=== PATIENT | male | born 1955 | race Caucasian/White ===

== ENCOUNTER → 2016-09-24 | Outpatient (CLI) | payer BC ==
--- NOTE | 2016-09-24 12:37 | KCIC ---
PROCEDURE MRI of the cervical spine without contrast 09/24/2016 HISTORY Chronic neck pain which radiates down both shoulders. TECHNIQUE Unenhanced T1 weighted, T2 weighted and inversion recovery sagittal and gradient echo and T2 weighted axial images of the cervical spine were obtained. FINDINGS Very mild lateral curvature of the cervical spine is seen convex to the right. There is straightening of the normal cervical lordosis. Degenerative signal changes are seen involving all of the discs of the cervical spine. Degenerative signal changes are seen within the marrow surrounding these discs. Loss of height of the C5-6 disc is noted. No area of abnormal signal intensity is seen involving the cervical spinal cord. At the C2-3, C3-4 and C4-5 disc spaces there are minimal to mild generalized disc bulges. Degenerative changes are seen involving the uncovertebral and facet joints bilaterally. These findings when combined do not result in significant central spinal canal or neural foraminal stenosis. At the C5-6 disc space there is moderate generalized disc bulge. Superimposed on this disc bulge is a focal central disc protrusion. This measures 3 millimeters in AP diameter. Degenerative changes are seen involving uncovertebral and facet joints bilaterally. These findings efface the anterior and posterior CSF resulting in mild central spinal canal stenosis with minimal cord impingement. Mild to moderate bilateral neural foraminal stenosis is seen. At the C6-7 disc space there is a mild to moderate generalized disc bulge. Superimposed on this disc bulge is a central/left paracentral focal disc protrusion. This measures 2-3 millimeters in AP diameter. Degenerative changes are seen involving the uncovertebral and facet joints, left greater than right. These findings when combined efface the anterior CSF resulting in mild central spinal canal stenosis without evidence of cord impingement. Mild to moderate left greater than right neural foraminal stenosis is seen. At the C7-T1 disc space there is a minimal generalized disc bulge. No significant central spinal canal or neural foraminal stenosis is seen. IMPRESSION Degenerative changes are seen throughout the cervical spine. These findings result in mild central spinal canal stenosis with minimal cord impingement at C5-6 and mild central spinal canal stenosis at C6-7. Mild to moderate bilateral neural foraminal stenosis is seen at C5-6. Mild to moderate left greater than right neural foraminal stenosis is seen at C6-7. Electronically signed by: Rk Gallegos MD (Sep 24, 2016 12:36:15)
== END | disposition home or self-care (01) ==
LOC: KCIC MRI 08:59
PROVIDERS: ATTEND Anesthesiology Pain Medicine
DX: M48.02 Spinal stenosis, cervical region (principal); M47.892 Other spondylosis, cervical region; M43.8X2 Other specified deforming dorsopathies, cervical region
CPT/HCPCS: 72141

== ENCOUNTER 2017-01-17 17:28 | Inpatient (IN) | payer BC ==
[~2017-01-17] VITALS: Ht 165.1 cm; Wt 96.2 kg
[2017-01-17] MEDS ORDERED: DEXTROSE 50% 25 GM / 50ML DISP.SYRIN. IV PRN (19:30)
[2017-01-17] MEDS ORDERED: PROCHLORPERAZINE 10 MG/2 ML VIAL. IV PRN (19:30)
[2017-01-17] MEDS ORDERED: BISACODYL 10 MG SUPP.RECT. PR PRN (19:30)
[2017-01-17] MEDS ORDERED: oxyCODONE/APAP 5/325 1 TAB TABLET PO PRN (19:30)
[2017-01-17] MEDS ORDERED: MAGNESIUM HYDROXIDE 2,400 MG/30 ML ORAL.SUSP. PO PRN (19:30)
[2017-01-17] MEDS ORDERED: LACTULOSE 20 GM/30 ML SOLUTION. PO PRN (19:30)
[2017-01-17] MEDS ORDERED: ACETAMINOPHEN 325 MG TABLET. PO PRN (19:30)
[2017-01-17] MEDS ORDERED: PROCHLORPERAZINE 25 MG SUPP.RECT. PR PRN (19:30)
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
[2017-01-17] MEDS: IV 1/2 NORMAL SALINE 1,000 ML IV SCH (20:23)
[2017-01-17] MEDS: MORPHINE SULFATE 2 MG/ML DISP.SYRIN. IV PRN ×2 (20:25→22:57)
[2017-01-17 20:43] VITALS: BP 108/69
[2017-01-17 20:44] VITALS: BP 108/69
[2017-01-17] MEDS: DOCUSATE SODIUM 100 MG CAPSULE. PO SCH (22:03)
[2017-01-17 23:00] VITALS: BP 114/69
[2017-01-18] MEDS: MORPHINE SULFATE 2 MG/ML DISP.SYRIN. IV PRN ×5 (02:06→21:04)
--- NOTE | 2017-01-18 02:28 | ACF ---
Admission Forms Criteria MUSCULOSKELETAL DISEASE GRG Clinical Indications for Admission to Inpatient Care (Place 'X' for any and all applicable criteria): Hospital admission is needed for appropriate care of the patient because of 1 or more of the following: [X ]I. Fracture, dislocation, or other musculoskeletal injury requiring inpatient care(medical) as indicated by 1 or more of the following(4)(5)(6)(7) [ ]a) Vertebral fracture requiring observation for instability or neurologic compromise (8) [ ]b) Compartment syndrome (proven or cannot be ruled out during observation level of care) (9) [ ]c) Limb-threatening injury [ ]d) Major injury requiring inpatient stabilization such as traction initiation or external fixation before internal fixation or closure of complex or open fracture [X ]e) Major injury requiring inpatient treatment after emergency or observation level care (as appropriate) [ ]f) Severe pain requiring acute inpatient management [ ]g) Injury with suspicion of abuse or neglect (eg., child, dependent elderly) [ ]II. Newly diagnosed or suspected bone, joint, or orthopedic device infection (e.g., osteomyelitis, septic arthritis) needing 1 or more of the following(1)(2)(3) [ ]a) IV antibiotics that cannot be initiated in other than inpatient setting (e.g., patient too unstable or home infusion not available) [ ]b) Device removal or replacement [ ]c) Bone or soft tissue debridement [ ]d) Joint drainage (drain placement or repetitive aspirations) [ ]III. Severe rheumatologic disease (e.g., systemic lupus erythematosus, rheumatoid arthritis) with complications or comorbidities (Also use Optimal Recovery Care Criteria or General Recovery Criteria as appropriate on the basis of predominant condition), including 1 or more of the following( 10)(11)(12)(13) [ ]a) Severe infection (e.g., [employer]EL [employer] infection, sepsis) (14) [ ]b) Respiratory complications, including 1 or more of the following : [ ]i) Pleural effusion with respiratory compromise [ ]ii) Pulmonary hypertension with congestive failure [ ]iii) Respiratory failure [ ]iv) Pulmonary hemorrhage (15) [ ]c) Hematologic disease, including 1 or more of the following: [ ]i) Coagulopathy with bleeding [ ]ii) Thrombosis with hypercoagulable state [ ]iii) Thrombotic thrombocytopenic purpura [ ]d) Cerebritis with seizures, psychosis, or other severe abnormalities [ ]e) Vertebral destruction with monitoring needed for cervical myelopathy& possible respiratory compromise [ ]f) Exacerbation that requires inpatient treatment (e.g., intravenous immunosuppression) (16) [ ]g) Acute renal failure [ ]h) Cerebritis with seizures, psychosis, Altered mental status, or other neurologic abnormalities [ ]i) Pericardial effusion with tamponade [ ]j) Vertebral destruction, with monitoring needed for cervical myelopathy and possible respiratory compromise [ ]IV. Severe vasculitis with complications or comorbidities (Also use Optimal Recovery Care Criteria General Recovery Criteria as appropriate on the basis of predominant condition), including 1 or more of the following(11)(12)(17)(18)(19)(20) [ ]a) Exacerbation that requires inpatient treatment (e.g., intravenous immunosuppression) (19)(21) [ ]b) Pulmonary hemorrhage (15) [ ]c) SLEEV[employer] vasculitis with seizures, psychosis, Altered mental status that is severe or persistent, or other severe abnormalities (22) [ ]d) Cerebral infarction [ ]e) Gastrointestinal ischemia [ ]f) Gangrene or threatened amputation [ ]g) Renal failure (16) [ ]h) Other significant complications of vasculitis ( eg., tissue or organ ischemia, organ dysfunction ) [ ]V. Severe myopathy as indicated by 1 or more of the following (28)(29) [ ]a) New onset of airway compromise or inability to swallow [ ]b) Respiratory deterioration with observation needed for impending respiratory failure [ ]c) Exacerbation that requires inpatient treatment (e.g., intravenous immunosuppression) [ ]. Severe crystal gout (arthropathy) indicated by 1 or more of the following (23)(24) [ ]a) Severe pain requiring acute inpatient management [ ]b) Exacerbation that requires inpatient treatment (e.g., intravenous treatment) [ ]VII.Rhabdomyolysis and 1 or more of the following (25)(26)(27) [ ]a) Acute renal failure [ ]b) Need for intravenous hydration after emergency or observation level care (as appropriate) [ ]c) Inability to maintain oral hydration [ ]d) Change in mental status [ ]e) Electrolyte abnormality that remains after emergency or observation level care (as appropriate) [ ]VIII Post amputation complication, as indicated by ANY ONE of the following [ ]a) Infection [ ]b) Dehiscence [ ]c) Myodesis failure [ ]IX. Severe pain requiring acute inpatient management due to musculoskeletal condition [ ]X. Musculoskeletal Disease and ALL of the following: [ ]a) Symptom or finding for which emergency and observation care have failed or are not considered appropriate (Use General Criteria: Observation Care as appropriate) [ ]b) Presence of ANY ONE of the following [ ]i) A General Admission Criteria [ ]ii) A Pediatric General Admission Criteria The original [facility] [employer] content created by [facility] [employer] has been revised. The portions of the content which have been revised are identified through the use of italic text or in bold, and [facility] has neither reviewed nor approved the modified material. All other unmodified content is copyright [facility]. Please see references footnoted in the original [facility] edition 2016 Admission Criteria Met?: Yes LAST HE Jan 18, 2017 02:28
[2017-01-18 03:00] VITALS: BP 137/75
[2017-01-18] MEDS ORDERED: ALPR0.5T PO ×2 (03:42)
[2017-01-18] MEDS ORDERED: TADA5TAB PO (03:42)
[2017-01-18] MEDS ORDERED: OLME1TAB35 PO (03:42)
[2017-01-18] MEDS ORDERED: LIRA0.6P2 SQ (03:42)
[2017-01-18] MEDS ORDERED: TEST200V3 IM (03:42)
[2017-01-18 04:29] LABS: CALCIUM 8.3 mg/dL (8.5-10.1); CREATININE 1.1 mg/dL (0.7-1.3); GFR 67.8; POTASSIUM 3.8 mmol/L (3.5-5.1)
[2017-01-18] MEDS: oxyCODONE/APAP 10/325 1 TAB TABLET PO PRN ×4 (04:46→22:19)
[2017-01-18] MEDS: IV 1/2 NORMAL SALINE 1,000 ML IV SCH (05:29)
[2017-01-18 07:00] VITALS: BP 128/79
[2017-01-18] MEDS: KETOROLAC TROMETHAMINE 30 MG/ML INJ. IV PRN (08:33)
[2017-01-18] MEDS: ONDANSETRON PF 4 MG/2 ML VIAL. IV PRN ×2 (08:33→22:19)
[2017-01-18] MEDS: INSULIN ASPART 300 UNITS/3 ML INSULN.PEN SQ SCH ×3 (08:45→17:00)
[2017-01-18] MEDS: DOCUSATE SODIUM 100 MG CAPSULE. PO SCH ×2 (08:53→21:04)
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
[2017-01-18 11:00] VITALS: BP 106/67
[2017-01-18 15:00] VITALS: BP 123/64
[2017-01-18 19:00] VITALS: BP 120/74
[2017-01-18] MEDS: fentaNYL PF VIAL 100 MCG/2 ML VIAL IV PRN (22:20)
[2017-01-18 23:00] VITALS: BP 124/80
[2017-01-19 03:00] VITALS: BP 145/82
[2017-01-19] MEDS: oxyCODONE/APAP 10/325 1 TAB TABLET PO PRN ×4 (03:01→09:20)
[2017-01-19] MEDS: fentaNYL PF VIAL 100 MCG/2 ML VIAL IV PRN (03:44)
[2017-01-19 05:03] LABS: BASO % 0 % (0-3); EOS % 0 % (0-3); HEMATOCRIT 46.6 % (39.0-53.0); HEMOGLOBIN 15.1 g/dL (13.0-17.5); LYMPH # 1.2 x10^3/uL (1.0-4.8); LYMPH % 10 % (24-48); MEAN CORPUSCULAR HEMOGLOBIN 29 pg (25-35); MEAN CORPUSCULAR HGB CONC 32 g/dL (31-37); MEAN CORPUSCULAR VOLUME 88 fL (79-100); MONO % 7 % (0-9); NEUT % 83 % (31-73); PLATELET COUNT 228 x10^3/uL (140-400); RED BLOOD COUNT 5.27 x10^6/uL (4.30-5.70); RED CELL DISTRIBUTION WIDTH 14.9 % (11.5-14.5); WHITE BLOOD COUNT 12.5 x10^3/uL (4.0-11.0)
[2017-01-19] MEDS: MORPHINE SULFATE 2 MG/ML DISP.SYRIN. IV PRN (05:19)
[2017-01-19 05:39] LABS: CALCIUM 8.2 mg/dL (8.5-10.1); CREATININE 1.1 mg/dL (0.7-1.3); GFR 67.8; POTASSIUM 4.1 mmol/L (3.5-5.1)
[2017-01-19 07:09] VITALS: BP 142/98
[2017-01-19] MEDS: KETOROLAC TROMETHAMINE 30 MG/ML INJ. IV PRN (07:20)
[2017-01-19] MEDS: DOCUSATE SODIUM 100 MG CAPSULE. PO SCH (09:00)
[2017-01-19] MEDS: INSULIN ASPART 300 UNITS/3 ML INSULN.PEN SQ SCH (09:48)
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
== END 2017-01-19 11:12 | disposition home or self-care (01) | DRG 183 ==
LOC: 4 NORTH 19:00
PROVIDERS: ADMIT Internal Medicine; ATTEND Internal Medicine
DX: S22.42XA Multiple fractures of ribs, left side, initial encounter for closed fracture (principal); N17.0 Acute kidney failure with tubular necrosis; E11.9 Type 2 diabetes mellitus without complications; E66.9 Obesity, unspecified; Z68.35 Body mass index [BMI] 35.0-35.9, adult; E78.5 Hyperlipidemia, unspecified; I10 Essential (primary) hypertension; M19.90 Unspecified osteoarthritis, unspecified site; S80.212A Abrasion, left knee, initial encounter; Z82.49 Family history of ischemic heart disease and other diseases of the circulatory system; Z83.3 Family history of diabetes mellitus; Z90.49 Acquired absence of other specified parts of digestive tract; Z88.5 Allergy status to narcotic agent; V27.2XXA Unspecified motorcycle rider injured in collision with fixed or stationary object in nontraffic accident, initial encounter; Y92.488 Other paved roadways as the place of occurrence of the external cause; Y93.31 Activity, mountain climbing, rock climbing and wall climbing; Y99.8 Other external cause status
CPT/HCPCS: 36415; 80048; 82962; 85027; A6539; C1887; J0780; J1815; J1885; J2270; J2405; J3010

== ENCOUNTER → 2017-08-17 | Outpatient (CLI) | payer BC | END | disposition home or self-care (01) | LOC: KCIC MRI 12:43 | DX: S46.011D Strain of muscle(s) and tendon(s) of the rotator cuff of right shoulder, subsequent encounter (principal); M75.21 Bicipital tendinitis, right shoulder; R60.0 Localized edema; X58.XXXD Exposure to other specified factors, subsequent encounter | CPT/HCPCS: 73221 ==

== ENCOUNTER 2018-01-09 07:48 | Inpatient (IN) | payer BC ==
[2018-01-09 08:19] LABS: POC GLUCOSE 202 mg/dL (70-99)
[2018-01-09] MEDS: ONDANSETRON PF 4 MG/2 ML VIAL. IV ×2 (08:30→19:17)
[2018-01-09 09:25] LABS: AGAP ISTAT 16 mmol/L (6-14); BUN ISTAT 22 mg/dL (8-26); CHLORIDE ISTAT 94 mmol/L (98-110); CREATININE ISTAT 1.2 mg/dL (0.5-1.4); GLUCOSE ISTAT 217 mg/dL (70-99); HEMATOCRIT ISTAT 54 % (37-52); HEMOGLOBIN ISTAT 18.4 g/dL (14-18); ION CA ISTAT 1.05 mmol/L (1.13-1.32); POTASSIUM ISTAT 3.9 mmol/L (3.5-5.0); SODIUM ISTAT 135 mmol/L (135-145); TOT CO2 ISTAT 29 mmol/L (23-32)
[2018-01-09 09:28] LABS: ANION GAP 7 (6-14); BASO % 0 % (0-3); BLOOD UREA NITROGEN 21 mg/dL (8-26); BUN/CREATININE RATIO 14 (6-20); CARBON DIOXIDE 28 mmol/L (21-32); CHLORIDE 98 mmol/L (98-107); CREATININE 1.5 mg/dL (0.7-1.3); EOS % 0 % (0-3); GFR 47.3; GLUCOSE 217 mg/dL (70-99); HEMATOCRIT 50.7 % (39.0-53.0); HEMOGLOBIN 17.1 g/dL (13.0-17.5); LYMPH # 0.9 x10^3/uL (1.0-4.8); LYMPH % 8 % (24-48); MEAN CORPUSCULAR HEMOGLOBIN 30 pg (25-35); MEAN CORPUSCULAR HGB CONC 34 g/dL (31-37); MEAN CORPUSCULAR VOLUME 88 fL (79-100); MONO # 0.7 x10^3/uL (0.0-1.1); MONO % 6 % (0-9); NEUT % 85 % (31-73); PLATELET COUNT 255 x10^3/uL (140-400); POTASSIUM 3.9 mmol/L (3.5-5.1); RED BLOOD COUNT 5.76 x10^6/uL (4.30-5.70); RED CELL DISTRIBUTION WIDTH 15.2 % (11.5-14.5); SODIUM 133 mmol/L (136-145); WHITE BLOOD COUNT 11.8 x10^3/uL (4.0-11.0)
[2018-01-09 09:30] LABS: ADD MAN DIFF? YES
[2018-01-09 09:33] LABS: ALBUMIN 3.8 g/dL (3.4-5.0); ALBUMIN/GLOBULIN RATIO 1.2 (1.0-1.7); ALK PHOS 87 U/L (46-116); ALT (SGPT) 29 U/L (16-63); AST (SGOT) 14 U/L (15-37); TOTAL BILIRUBIN 0.8 mg/dL (0.2-1.0); TOTAL PROTEIN 7.1 g/dL (6.4-8.2)
[2018-01-09 09:50] LABS: TROPONINI < 0.017 ng/mL (0.000-0.055)
[2018-01-09] MEDS: IOHEXOL 300 MG/ML 100ML VIAL. IV (09:51)
[2018-01-09 10:12] LABS: BILIRUBIN,URINE NEGATIVE (NEG); CLARITY,URINE CLEAR; COLOR,URINE YELLOW; GLUCOSE,URINE >=1000 mg/dL (NEG); NITRITE,URINE NEGATIVE (NEG); PROTEIN,URINE 30 mg/dL (NEG-TRACE)
[2018-01-09 10:25] LABS: BACTERIA,URINE FEW /HPF (0-FEW); HYALINE CASTS, URINE OCCASIONAL /HPF; RBC,URINE RARE /HPF (0-2); SQUAMOUS EPITHELIAL CELL,UR FEW /LPF
[2018-01-09] MEDS: ACETAMINOPHEN 500 MG TABLET PO (10:30)
[2018-01-09 10:42] LABS: INR 1.1 (0.8-1.1); PARTIAL THROMBOPLASTIN TIME 30 SEC (24-38); PROTHROMBIN TIME PATIENT 13.6 SEC (11.7-14.0)
[2018-01-09 13:14] LABS: % LYMPHS 7 % (24-48); % MONOS 7 % (0-10); % SEGS 86 % (35-66); PLT ESTIMATE ADEQUATE (ADEQUATE)
[2018-01-09] MEDS ORDERED: LABETALOL 20 MG/4 ML DISP.SYRIN. IVP (13:15)
[2018-01-09] MEDS ORDERED: ACETAMINOPHEN 650 MG SUPP.RECT. PR (13:15)
[2018-01-09] MEDS ORDERED: ASPIRIN 300 MG SUPP.RECT PR (13:15)
[2018-01-09] MEDS: MORPHINE SULFATE 4 MG/ML DISP.SYRIN. IV (13:15)
[2018-01-09] MEDS: ENOXAPARIN 40 MG/0.4 ML SYRINGE. SQ (14:01)
[2018-01-09] MEDS: ASPIRIN ENTERIC COATED 325 MG TABLET.DR. PO (14:01)
[2018-01-09] MEDS: CLOPIDOGREL BISULFATE 75 MG TABLET PO (14:01)
[2018-01-09] MEDS: IV NORMAL SALINE 1000ML BAG 1,000 ML IV ×2 (14:02→23:01)
[2018-01-09] MEDS ORDERED: NON FORMULARY ITEM (Albuterol Sulfate (Proair Hfa Inhaler) 1 PUFF) INH (16:30)
[2018-01-09] MEDS ORDERED: ALPRAZolam 0.5 MG TABLET PO (16:30)
[2018-01-09] MEDS ORDERED: ALBUTEROL SULFATE 2.5 MG/3 ML NEBU. NEB (16:30)
[2018-01-09] MEDS ORDERED: DEXTROSE 50% 25 GM / 50ML DISP.SYRIN. IV (16:30)
[2018-01-09] MEDS ORDERED: NON FORMULARY ITEM (Liraglutide (Victoza 3-Pak) 1.2 MG) SQ (16:30)
[2018-01-09 17:38] LABS: POC GLUCOSE 171 mg/dL (70-99)
[2018-01-09] MEDS: INSULIN LISPRO 300 UNITS/3 ML INSULN.PEN. SQ (17:58)
[2018-01-09] MEDS ORDERED: ONDANSETRON PF 4 MG/2 ML VIAL. IV (19:15)
[2018-01-09] MEDS: ACETAMINOPHEN 325 MG TABLET. PO (19:17)
[2018-01-09] MEDS: ALPRAZolam 0.5 MG TABLET PO (21:30)
[2018-01-10 05:27] LABS: ADD MAN DIFF? NO
[2018-01-10 05:37] LABS: BASO % 0 % (0-3); EOS % 0 % (0-3); HEMATOCRIT 49.7 % (39.0-53.0); HEMOGLOBIN 16.4 g/dL (13.0-17.5); LYMPH # 1.5 x10^3/uL (1.0-4.8); LYMPH % 12 % (24-48); MEAN CORPUSCULAR HEMOGLOBIN 29 pg (25-35); MEAN CORPUSCULAR HGB CONC 33 g/dL (31-37); MEAN CORPUSCULAR VOLUME 89 fL (79-100); MONO # 0.9 x10^3/uL (0.0-1.1); MONO % 7 % (0-9); NEUT # 10.3 x10^3uL (1.8-7.7); NEUT % 81 % (31-73); PLATELET COUNT 225 x10^3/uL (140-400); RED BLOOD COUNT 5.61 x10^6/uL (4.30-5.70); RED CELL DISTRIBUTION WIDTH 15.2 % (11.5-14.5); WHITE BLOOD COUNT 12.7 x10^3/uL (4.0-11.0)
[2018-01-10 05:50] LABS: ANION GAP 1 (6-14); BLOOD UREA NITROGEN 16 mg/dL (8-26); CALCIUM 8.6 mg/dL (8.5-10.1); CARBON DIOXIDE 32 mmol/L (21-32); CHLORIDE 99 mmol/L (98-107); CHOLESTEROL 162 mg/dL (0-200); CREATININE 1.2 mg/dL (0.7-1.3); GFR 61.1; GLUCOSE 138 mg/dL (70-99); HDLC 38 mg/dL (40-60); LDLC 95 mg/dL (0-100); NON-HDL CHOLESTEROL 124 mg/dL (0-129); POTASSIUM 4.4 mmol/L (3.5-5.1); SODIUM 132 mmol/L (136-145); TRIGLYCERIDES 147 mg/dL (0-150); VLDLC 29 mg/dL (0-40)
[2018-01-10 05:51] LABS: CHOLESTEROL/HDL RATIO 4.3
[2018-01-10] MEDS: INSULIN LISPRO 300 UNITS/3 ML INSULN.PEN. SQ ×3 (08:00→17:00)
[2018-01-10] MEDS: ASPIRIN ENTERIC COATED 325 MG TABLET.DR. PO (08:25)
[2018-01-10] MEDS: ACETAMINOPHEN 325 MG TABLET. PO ×2 (08:25→19:55)
[2018-01-10] MEDS: CLOPIDOGREL BISULFATE 75 MG TABLET PO (08:26)
[2018-01-10] MEDS: ATORVASTATIN CALCIUM 40 MG TABLET. PO (08:26)
[2018-01-10 08:31] LABS: POC GLUCOSE 139 mg/dL (70-99)
[2018-01-10] MEDS: diazePAM 5 MG TABLET PO (08:49)
[2018-01-10] MEDS: SODIUM CHLORIDE 0.65% NASAL SPRAY 45ML BOTTLE. NS (11:59)
[2018-01-10] MEDS: FAMOTIDINE 20 MG TABLET. PO ×2 (11:59→15:27)
[2018-01-10 12:05] LABS: POC GLUCOSE 133 mg/dL (70-99)
[2018-01-10] MEDS: ENOXAPARIN 40 MG/0.4 ML SYRINGE. SQ (13:37)
[2018-01-10] MEDS: ALPRAZolam 0.5 MG TABLET PO ×2 (15:57→22:13)
[2018-01-10 17:48] LABS: POC GLUCOSE 120 mg/dL (70-99)
[2018-01-10 20:46] LABS: POC GLUCOSE 129 mg/dL (70-99)
[2018-01-11 01:11] LABS: MRSA BY PCR Negative (Negative)
[2018-01-11 04:18] LABS: HEMOGLOBIN A1C 7.1 % (4.8-5.6)
[2018-01-11] MEDS: ATORVASTATIN CALCIUM 40 MG TABLET. PO (07:48)
[2018-01-11] MEDS: ASPIRIN ENTERIC COATED 325 MG TABLET.DR. PO (07:48)
[2018-01-11] MEDS: ACETAMINOPHEN 325 MG TABLET. PO ×3 (07:48→21:29)
[2018-01-11] MEDS: CLOPIDOGREL BISULFATE 75 MG TABLET PO (07:48)
[2018-01-11] MEDS: INSULIN LISPRO 300 UNITS/3 ML INSULN.PEN. SQ ×3 (07:53→17:00)
[2018-01-11 07:56] LABS: POC GLUCOSE 125 mg/dL (70-99)
[2018-01-11] MEDS ORDERED: DEXTROSE 50% 25 GM / 50ML DISP.SYRIN. IV (11:30)
[2018-01-11] MEDS ORDERED: INSULIN LISPRO 300 UNITS/3 ML INSULN.PEN. SQ (12:00)
[2018-01-11 12:13] LABS: POC GLUCOSE 207 mg/dL (70-99)
[2018-01-11 17:44] LABS: POC GLUCOSE 164 mg/dL (70-99)
[2018-01-11 20:31] LABS: POC GLUCOSE 194 mg/dL (70-99)
[2018-01-11] MEDS: ALPRAZolam 0.5 MG TABLET PO (21:29)
[2018-01-12] MEDS: ATORVASTATIN CALCIUM 40 MG TABLET. PO (08:29)
[2018-01-12] MEDS: CLOPIDOGREL BISULFATE 75 MG TABLET PO (08:29)
[2018-01-12] MEDS: ASPIRIN ENTERIC COATED 325 MG TABLET.DR. PO (08:29)
[2018-01-12] MEDS: ACETAMINOPHEN 325 MG TABLET. PO (08:29)
[2018-01-12] MEDS: INSULIN LISPRO 300 UNITS/3 ML INSULN.PEN. SQ (08:41)
== END 2018-01-12 12:35 | disposition home or self-care (01) | DRG 65 ==
LOC: 6 SOUTH 01-10 13:53 → ER 07:48 → 1 WEST ICU 13:04
PROVIDERS: Internal Medicine
DX: I63.531 Cerebral infarction due to unspecified occlusion or stenosis of right posterior cerebral artery (principal); G81.94 Hemiplegia, unspecified affecting left nondominant side; D72.829 Elevated white blood cell count, unspecified; E11.40 Type 2 diabetes mellitus with diabetic neuropathy, unspecified; E78.5 Hyperlipidemia, unspecified; F41.9 Anxiety disorder, unspecified; I10 Essential (primary) hypertension; J45.20 Mild intermittent asthma, uncomplicated; N40.0 Benign prostatic hyperplasia without lower urinary tract symptoms; Z79.02 Long term (current) use of antithrombotics/antiplatelets; Z79.82 Long term (current) use of aspirin; Z79.899 Other long term (current) drug therapy; Z82.49 Family history of ischemic heart disease and other diseases of the circulatory system; Z83.3 Family history of diabetes mellitus; Z86.73 Personal history of transient ischemic attack (TIA), and cerebral infarction without residual deficits; Z88.5 Allergy status to narcotic agent; Z90.49 Acquired absence of other specified parts of digestive tract
CPT/HCPCS: 36415; 70450; 70496; 70498; 70551; 71045; 80047; 80048; 80053; 80061; 81001; 82962; 83036; 84484; 85007; 85025; 85610; 85730; 87641; 92610-GN; 93005; 93306; 96374; 97110-GO; 97110-GP; 97116-GP; 97162-GP; 97165-GO; 97530-GO; 97530-GP; 99285; 99285-25; J1650; J1815; J2270; J2405; J7030; Q9967

== ENCOUNTER → 2018-12-30 | Outpatient (CLI) | payer BC ==
[2018-01-12 11:00] VITALS: BP 147/84
[~2018-12-30] MED LIST: ALBU2.5V8 INH; ALPR0.5T PO; ASPI325T11 PO; ATOR40TA59 PO; ATROVENT HFA12.9 GM IH; CLOP75TA PO; LIRA0.6P2 SQ; OLME1TAB35 PO; SODI30SP NS; TADA5TAB PO; TEST200V3 IM
--- NOTE | 2018-12-30 11:56 | KCIC ---
MRI of the lumbar spine without contrast 12/30/2018 CLINICAL HISTORY: Chronic low back pain which radiates down both legs. TECHNIQUE: Unenhanced T1-weighted and T2-weighted sagittal and axial and inversion recovery sagittal images of the lumbar spine were obtained. FINDINGS: Comparison study is dated 02/18/2015. Minimal S-shaped curvature of the thoracolumbar spine is seen. Degenerative signal changes are seen involving the L2-3, L3-4, L4-5 and L5-S1 discs. Degenerative signal changes are seen within the marrow surrounding these discs. Loss of height of the L3-4 and L4-5 discs is noted. A 8 mm hemangioma is seen involving the L1 vertebral body. The conus medullaris is normal morphology, position, and signal characteristics. The L1-2 disc space is within normal limits. At the L2-3 disc space there is a mild generalized disc bulge. This is eccentric to the right. Degenerative changes are seen involving the facet joints bilaterally. There is mild ligamentum flavum hypertrophy bilaterally. These findings do not result in significant central spinal canal or neural foraminal stenosis. At the L3-4 disc space there is a mild to moderate generalized disc bulge. This is eccentric to the right. Degenerative changes are seen involving the facet joints bilaterally. There is mild ligamentum flavum hypertrophy bilaterally. There is prominence of the posterior epidural fat. These findings when combined result in mild central spinal canal stenosis. Mild to moderate bilateral neural foraminal stenosis is seen. At the L4-5 disc space there is a mild to moderate generalized disc bulge. This is eccentric to the right. Degenerative changes are seen involving the facet joints bilaterally. There is mild ligamentum flavum hypertrophy bilaterally. These findings when combined result in mild central spinal canal stenosis. Mild right greater than left neural foraminal stenosis is seen. At the L5-S1 disc space is a mild generalized disc bulge. Degenerative changes are seen involving the facet joints, right greater than left. There are small facet joint effusions bilaterally. These findings when combined do not result in significant central spinal canal or neural foraminal stenosis. The degenerative changes have progressed since the previous examination. IMPRESSION: The changes of degenerative disc disease are seen throughout the mid and lower lumbar spine. These findings result in mild central spinal canal stenosis at L3-4 and L4-5. Mild to moderate bilateral neural foraminal stenosis is seen at L3-4. Mild right greater than left neural foraminal stenosis is seen at L4-5. Electronically signed by: Rk Gallegos MD (12/30/2018 11:53 AM) [id number]
== END | disposition home or self-care (01) ==
LOC: KCIC MRI 10:01
PROVIDERS: ATTEND Family Medicine
DX: M51.36 Other intervertebral disc degeneration, lumbar region (principal); M48.061 Spinal stenosis, lumbar region without neurogenic claudication; M25.48 Effusion, other site; M51.27 Other intervertebral disc displacement, lumbosacral region; M89.38 Hypertrophy of bone, other site; D18.09 Hemangioma of other sites; M43.8X5 Other specified deforming dorsopathies, thoracolumbar region
CPT/HCPCS: 72148

== ENCOUNTER → 2019-02-27 | Outpatient (CLI) | payer BC ==
[2018-01-12 11:00] VITALS: BP 147/84
[~2019-02-27] MED LIST changes: +AMLO10TA4 PO; +CHOL100013 PO; +DOCU-109 PO; +HYDR-2761 PO; +HYDR-2765 PO; +METH-38 PO; +OLME20TA17 PO; +VITA400C37 PO; +XOPENEX HFA15 GM IH
--- NOTE | 2019-02-27 15:44 | EKG ---
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
[2019-02-27 16:09] LABS: BASO % 0 % (0-3); EOS # 0.1 x10^3/uL (0.0-0.7); EOS % 2 % (0-3); HEMATOCRIT 44.7 % (39.0-53.0); HEMOGLOBIN 14.9 g/dL (13.0-17.5); LYMPH # 1.6 x10^3/uL (1.0-4.8); LYMPH % 23 % (24-48); MEAN CORPUSCULAR HEMOGLOBIN 31 pg (25-35); MEAN CORPUSCULAR HGB CONC 34 g/dL (31-37); MEAN CORPUSCULAR VOLUME 93 fL (79-100); MONO # 0.4 x10^3/uL (0.0-1.1); MONO % 7 % (0-9); NEUT # 4.7 x10^3/uL (1.8-7.7); NEUT % 69 % (31-73); PLATELET COUNT 216 x10^3/uL (140-400); RED BLOOD COUNT 4.82 x10^6/uL (4.30-5.70); RED CELL DISTRIBUTION WIDTH 14.5 % (11.5-14.5); WHITE BLOOD COUNT 6.9 x10^3/uL (4.0-11.0)
[2019-02-27 16:50] LABS: ALBUMIN 3.8 g/dL (3.4-5.0); ALBUMIN/GLOBULIN RATIO 1.2 (1.0-1.7); CALCIUM 8.6 mg/dL (8.5-10.1); GFR 75.2; TOTAL BILIRUBIN 0.4 mg/dL (0.2-1.0)
== END | disposition home or self-care (01) ==
LOC: SURGPAT 15:54
PROVIDERS: ATTEND Neurological Surgery
DX: Z01.818 Encounter for other preprocedural examination (principal); M48.061 Spinal stenosis, lumbar region without neurogenic claudication; M54.16 Radiculopathy, lumbar region; E55.9 Vitamin D deficiency, unspecified
CPT/HCPCS: 36415; 80053; 82306; 85025; 87641; 93005

== ENCOUNTER 2019-03-02 07:16 | Day surgery (SDC) | payer BC ==
--- NOTE | 2019-03-01 16:51 | PREOP HP ---
DATE OF SERVICE: 03/02/2019 PREOPERATIVE HISTORY AND PHYSICAL HISTORY OF PRESENT ILLNESS: The patient is a pleasant 63-year-old, who is having very significant back pain along with pain which can radiate into both of his lower extremities. There is pain, which radiates into the right inguinal region as well as the pain that radiates into his left hip and posterolateral and anterior thigh. The problems have been present for years, but became much worse over the last several months. He rates his pain as a 2/10 right now. Any activity makes the problem worse. He has been using a TENS unit as well as inversion table. He takes Tylenol. He has had epidural steroid injections as well as extensive chiropractic treatment for the problem. PAST MEDICAL HISTORY: Arthritis, asthma, hypertension, stroke. PAST SURGICAL HISTORY: Tonsillectomy in 2002, cholecystectomy in 2014, and stroke in 2018. FAMILY HISTORY: Diabetes and hypertension. SOCIAL HISTORY: Retired. . Rarely exercises. Denies tobacco use. Drinks; alcohol use. Denies coffee consumption. ALLERGIES: No known drug allergies. CURRENT MEDICATIONS: Benicar, Norvasc, Lipitor, Plavix, Cialis, vitamin D, vitamin E, aspirin, Xopenex, Tylenol. REVIEW OF SYSTEMS: A 12-point review of systems was obtained and is noncontributory except for that mentioned above. NEUROSURGERY EXAMINATION: GENERAL APPEARANCE: Alert, pleasant, no acute distress. HEAD: Normocephalic and atraumatic. SKIN: Warm and dry. MUSCULOSKELETAL: Lumbar paraspinal muscle bulk is normal, restricted range of motion of lumbar spine, [id number] tenderness of lower lumbar spine with palpation, normal range of motion of the lower extremities bilaterally. EXTREMITIES: No clubbing, cyanosis, or edema. NEUROLOGIC: Alert and oriented x 3, normal recent and remote memory. Strength 5/5 in bilateral lower extremities. Sensory was intact to light touch in bilateral lower extremities. Reflexes were present and symmetric in lower extremities bilaterally, negative straight leg raising bilaterally, normal gait. IMAGING: I reviewed a lumbar MRI scan from 12/14/2018. On that study, the principal problem is at L3-L4 and L4-L5 where there is moderate bilateral lateral recess and foraminal narrowing as well as mild central canal stenosis. ASSESSMENT/ PLAN: The patient is significantly bothered by his back and bilateral lower leg pain. The lateral recess stenosis at L3-L4 and L4-L5 is contributing to this pain. I told him that I was willing to perform lumbar microdisk decompressive surgery at those 2 levels to see if this might help him. He understands the risks. He would like to go ahead. We will make the arrangements. SONAM SANCHEZ MD DR: BEN/leslie JOB#: [id number] / [id number] VERONICA
[~2019-03-02] VITALS: Ht 165.1 cm; Wt 86.6 kg
[~2019-03-02 07:16] MED LIST changes: +BACITRACIN 50,000 UNIT in IV NORMAL SALINE 1000ML BAG 1,000 ML IRR ONE; +BUPIVACAINE-EPI 0.5%-1:200000 MPF 30 ML VIAL. INJ ONE; -DOCU-109 PO; -HYDR-2761 PO; -HYDR-2765 PO; +IV RINGERS,LACTATED 1000ML 1,000 ML IV SCH; +LIDOCAINE 1% PF 2 ML VIAL. ID PRN; -METH-38 PO; +ONDANSETRON PF 4 MG/2 ML VIAL. IV PRN; +PROCHLORPERAZINE 10 MG/2 ML VIAL. IV PRN; +fentaNYL PF VIAL 100 MCG/2 ML VIAL IV PRN
[2019-03-02] MEDS ORDERED: THROMBIN TOPICAL 20,000 UNIT SPRAY.SYRN KIT TP ONE (07:38)
[2019-03-02] MEDS ORDERED: KETOROLAC 60 MG/2 ML INJ FOR OR. ONE (07:38)
[2019-03-02] MEDS ORDERED: GELATIN SPONGE SIZE 100. ONE (07:38)
[2019-03-02] MEDS ORDERED: HYDR-2761 PO (07:45)
[2019-03-02] MEDS ORDERED: ceFAZolin 2GM PREMIX 2 GM/50 ML BAG IV ONE (08:00)
[2019-03-02] MEDS ORDERED: DEXAMETHASONE SOD PHOS 20 MG/5 ML VIAL. ONE (08:12)
[2019-03-02] MEDS ORDERED: ONDANSETRON PF 4 MG/2 ML VIAL. ONE (08:12)
[2019-03-02] MEDS: INSULIN LISPRO 100 UNIT/ML 3ML VIAL for OP,RR ONLY. SQ PRN ×2 (08:12→13:00)
[2019-03-02] MEDS ORDERED: LIDOCAINE 2% PF 5 ML VIAL. ONE (08:12)
[2019-03-02] MEDS ORDERED: PROPOFOL 0 ML IV ONE (08:12)
[2019-03-02] MEDS ORDERED: ePHEDrine PF IN SALINE 50 MG/10 ML SYRINGE. IV ONE (08:13)
[2019-03-02] MEDS ORDERED: PHENYLEPHRINE in 0.9% NACL PF 1 MG/10 ML SYRINGE. IV ONE (08:13)
[2019-03-02] MEDS ORDERED: GLYCOPYRROLATE 1 MG/5 ML VIAL. ONE (08:13)
[2019-03-02] MEDS ORDERED: ROCURONIUM 50 MG/5 ML VIAL. ONE (08:14)
[2019-03-02] MEDS ORDERED: SUCCINYLCHOLINE 200 MG/10 ML VIAL. ONE (08:14)
[2019-03-02] MEDS ORDERED: PROPOFOL 20 ML IV ONE ×2 (08:15→11:31)
[2019-03-02] MEDS ORDERED: MIDAZOLAM HCL/PF 2 MG/2 ML VIAL. ONE (08:15)
[2019-03-02] MEDS ORDERED: fentaNYL PF VIAL 100 MCG/2 ML VIAL ONE (08:15)
[2019-03-02] MEDS ORDERED: REMIFENTANIL 2 MG VIAL. IV ONE (08:15)
[2019-03-02] MEDS ORDERED: DESFLURANE > 120 MINUTES IH ONE (09:38)
[2019-03-02] MEDS ORDERED: PROPOFOL 50 ML IV ONE ×2 (11:30)
[2019-03-02] MEDS ORDERED: DOCU-109 PO (12:15)
[2019-03-02] MEDS ORDERED: METH-38 PO (12:15)
[2019-03-02] MEDS ORDERED: HYDR-2765 PO (12:15)
--- NOTE | 2019-03-02 12:15 | OP ---
DATE OF SURGERY: 03/02/2019 PREOPERATIVE DIAGNOSES: Lateral recess stenosis bilaterally at L3-L4, L4-L5 with lumbar radiculopathy. POSTOPERATIVE DIAGNOSES: Lateral recess stenosis with lumbar radiculopathy, bilateral L3-L4, L4-L5 plus focal HNP right L3-L4 and left L4-L5. OPERATION PERFORMED: Bilateral microdecompression and microdiscectomy L3-L4 and L4-L5. The operation was done with EMG monitoring, SSEP monitoring, fluoroscopy and microscopic dissection. SURGEON: Sander Sanchez M.D. LEAN MANUFACTURING LEADER: JUAN Cruz, assisted with the surgery. She assisted with the exposure, the bilateral microdecompression as well as discectomy and closure. OPERATIVE INDICATIONS: The patient is a pleasant 63-year-old man who developed intractable back and bilateral lower extremity symptoms and was found to have lateral recess stenosis on imaging studies and I recommended microdecompressive surgery after he failed conservative measures. On imaging studies, the above-mentioned findings were seen and he understood the surgery and risks and he wished to go ahead. DESCRIPTION OF PROCEDURE: Following general endotracheal anesthesia, the patient was positioned prone on the Vini frame. His lumbar region was prepped and draped in standard fashion. MINH hose and AV impulse boots were applied for DVT prophylaxis. A microscope was draped. Fluoroscopy was draped and brought into field. Monitoring was established. An Ancef 2 grams was given less than 1 hour prior to initiation of surgery. Using fluoroscopic guidance, a midline incision was made centered from L3-L5. I dissected down through skin and subcutaneous tissue, reflected the paraspinal muscles first to the left and placed a Crooks micro disc retractor, brought in the microscope beginning at L4-L5, I burred down a generous hemilaminotomy and then peeled away the very thickened ligamentum flavum, performed a partial foraminotomy. Palpating beneath the nerve root, there was a focal disc herniation, wedged into and lifting the nerve as well as scarred to the nerve and I freed this up and remove this disc herniation at the end of the subligamentous space and removed other disc fragments and as I worked, the region became very well decompressed. Otherwise, the disc was firm and further disc work was not warranted, I did coagulate a few epidural veins and then went to L3-L4 and I performed a microdecompression operation identical fashion at this level again with a partial foraminotomy. Again, I was able to obtain an excellent decompression. There were no disc problems found. At this level, I irrigated copiously and then switched over to the right side in a similar fashion created exposure confirmed my positions fluoroscopically and beginning at L4-L5 with a generous hemilaminotomy and microdecompression removing the thickened ligamentum flavum performing a partial foraminotomy. I then went to L3-L4 in a similar fashion after decompressing and peeling the ligamentum flavum, there was focal disc herniation beneath the nerve root at this location. I did then open the ligament, there was subligamentous disc in this location and this was soft just beneath the ligament, but the remainder of the disc was quite firm and I did not perform an enlarged discectomy, but I did remove the subligamentous portion. At this point, the area was very free. I irrigated it copiously with antibiotic solution. I removed the retractors and obtained hemostasis in the muscle and irrigated again and then I closed the wound in layers with absorbable suture and the skin was closed with 4-0 subcuticular stitch. The operation went very well and the patient was taken uneventfully to recovery room. I was quite pleased with the surgery. SANDER SANCHEZ MD DR: BEN/leslie JOB#: [id number] / [id number] VERONICA
--- NOTE | 2019-03-02 12:17 | DISCH ---
DISCHARGE INSTRUCTIONS Condition on Discharge Condition on Discharge: Stable Activity After Discharge Activity Instructions for Disc: Activity as tolerated, Avoid exertion Other activity instructions: no driving for a week Bathing Instructions: Shower-keep dressing dry Lifting Instructions after Dis: No heavy lifting, No pulling or pushing, Do not lift >10 pounds Driving Instructions after Dis: Do not drive Diet after Discharge Diet after Discharge: Diabetic No Calorie Level Additional Diet Restrictions: resume home diet Wound Incision Care Wound/Incision Care: Ice to area for comfort Other wound/incision instructi: may remove dressing in 48 hours if dry then may shower, no soaking Contacting the [facility] after DC Call your doctor for: Concerns you may have Follow-Up Follow up with: Dr. Sanchez's nurse in 2 weeks [phone] Treatment/Equipment after DC Adaptive Equipment Issued: None Warfarin Follow-Up Warfarin Follow UP: resume plavix 03/03/19 SONAM SANCHEZ MD Mar 02, 2019 12:17
[2019-03-02 12:45] VITALS: BP 121/50
[2019-03-02] MEDS ORDERED: HYDROcodone/APAP 7.5/325MG 1 TAB TABLET PO ONE (12:45)
--- NOTE | 2019-03-03 18:06 | PATHOLOGY ---
[facility] Accession Number: [id number] . 01 Material submitted: . vertebral column - LUMBAR DECOMPRESSION . 01 Clinical history: . Low back pain, stenosis, radiculopathy . 02 Diagnosis: Segments of fibrocartilaginous, synovial, and skeletal muscle tissue and bone, lumbar decompression: - Degenerative changes of fibrocartilaginous tissue. LBQ/03/03/2019 . 02 Comment: There is no evidence of an acute inflammatory process or malignancy. (JPM/db; 03/03/2019) . 02 Electronically signed: . Stephane Sheikh MD, Pathologist NPI- [id number] . 01 Gross description: . The specimen is received in formalin, labeled "Josh Yung, lumbar decompression". Received are multiple segments of pale enrique to pink-enrique, rubbery and gritty soft tissue and bone, measuring 6.9 x 6.7 x 0.9 cm in aggregate dimensions. The specimen is submitted representatively in cassette A1, following decalcification. (CAA; 03/02/2019) QAC/QAC . 02 Pathologist provided ICD-10: M51.36 . 02 CPT . 322935, [id number] Specimen Comment: A courtesy copy of this report has been sent to Specimen Comment: [phone], . Specimen Comment: Report sent to and Performed at: 01 [facility] [address], [place] [id number] MD Milton Moser MD Phone: [phone] Performed at: 02 [facility] [address] [place], [place] [id number] MD Stephane Sheikh MD Phone: [phone]
== END 2019-03-02 14:30 | disposition home or self-care (01) ==
LOC: SURG 07:16
PROVIDERS: ATTEND Neurological Surgery
DX: M51.16 Intervertebral disc disorders with radiculopathy, lumbar region (principal); M48.061 Spinal stenosis, lumbar region without neurogenic claudication; J45.909 Unspecified asthma, uncomplicated; I10 Essential (primary) hypertension; Z79.899 Other long term (current) drug therapy; Z86.73 Personal history of transient ischemic attack (TIA), and cerebral infarction without residual deficits; Z90.49 Acquired absence of other specified parts of digestive tract; Z98.890 Other specified postprocedural states; Z72.89 Other problems related to lifestyle
CPT/HCPCS: 63030; 63035; 76000; 82962; 88304; 88311; 97116; 97162; 97530; A7015; J0171; J0330; J0696; J1100; J1885; J2001; J2250; J2370; J2405; J2704; J3010; J3490; J7030; J7120

== ENCOUNTER → 2020-03-14 | Outpatient (CLI) | payer MEDICARE, BC ==
[~2020-03-14] MED LIST changes: -BACITRACIN 50,000 UNIT in IV NORMAL SALINE 1000ML BAG 1,000 ML IRR ONE; -BUPIVACAINE-EPI 0.5%-1:200000 MPF 30 ML VIAL. INJ ONE; +DOCU-109 PO; +HYDR-2761 PO; +HYDR-2765 PO; -IV RINGERS,LACTATED 1000ML 1,000 ML IV SCH; -LIDOCAINE 1% PF 2 ML VIAL. ID PRN; +METH-38 PO; -ONDANSETRON PF 4 MG/2 ML VIAL. IV PRN; -PROCHLORPERAZINE 10 MG/2 ML VIAL. IV PRN; -fentaNYL PF VIAL 100 MCG/2 ML VIAL IV PRN
--- NOTE | 2020-03-14 15:34 | KCIC ---
STUDY: MRI of the right shoulder without contrast INDICATION: Persistent pain. Incomplete rotator cuff tear. Fall reported in 2016. COMPARISON: Right shoulder MRI 08/17/2017 TECHNIQUE: Multiplanar MR imaging of the right shoulder performed without the use of intravenous or intra-articular contrast. FINDINGS: Degraded study on account of motion. AC joint: Mild/moderate AC joint arthrosis. Trace mass effect on the supraspinatus by infraclavicular spurring. Small amount of fluid as well as edema-like signal of the subacromial subdeltoid bursa but not to the extent typical of bursitis. Rotator cuff: Generalized intermediate grade thinning that has worsened since 2018. Progression in size of a small but high-grade tear of the supraspinatus at the footprint approximately 8 mm posterior to the leading edge. This involves approximately 80 percent residual tendon thickness and measures 6 mm AP by 8 mm mediolateral (image 17 series 4 and image 10 series 6. Thin low-grade tear (less than 25 percent) of the supraspinatus/infraspinatus junctional fibers at the footprint, image 12 series 6. The teres minor is intact. More pronounced thinning of the subscapularis tendon but with intact insertional fibers. Mild to moderate atrophy/fatty infiltration of the subscapularis that has worsened. Otherwise rotator cuff muscular bulk is maintained. Labrum: The superior to posterior superior labrum exhibits progressive tearing. Long head biceps tendon: The intra-articular portion of the long head biceps tendon is no longer visualized and no normal appearing tendon is seen within the bicipital groove. Cartilage: Not well evaluated due to motion but appears relatively similar to the prior. Bones: Degenerative remodeling/cystic change along the greater tuberosity. No acute fracture. Miscellaneous: No significant shoulder joint effusion. Within normal limits axillar soft tissues. Impression: 1. Progression in size of a high-grade tear of the more anterior supraspinatus at the footprint that involves approximately 80 percent tendon cross-sectional thickness and measures 6 mm AP by 8 mm mediolateral. Background intermediate grade thinning of the supraspinatus has worsened as well. 2. Tiny low-grade tear of the supraspinatus/infraspinatus junction at the footprint. 3. More pronounced thinning of the subscapularis tendon but remaining intact. There is now mild/moderate subscapularis atrophy/fatty infiltration while previously mild. Bulk elsewhere is normal. 4. No normal long head biceps tendon is seen either intra or extra-articular. No evidence of prior tenodesis and it is presumed to be fully torn. 5. Progressive degeneration/tearing of the superior to posterior/superior labrum. Electronically signed by: BIMAL BINGHAM MD (03/14/2020 3:31 PM) [id number]
== END ==
LOC: KCIC MRI 13:30
PROVIDERS: ATTEND Orthopaedic Surgery Sports Medicine
DX: M75.111 Incomplete rotator cuff tear or rupture of right shoulder, not specified as traumatic (principal)
CPT/HCPCS: 73221

== ENCOUNTER → 2020-07-09 | Outpatient (CLI) | payer MEDICARE, BC ==
--- NOTE | 2020-07-09 14:58 | KCIC ---
Examination: MRI of the left shoulder without contrast HISTORY: History of left shoulder pain after fall COMPARISON: None available TECHNIQUE: Multiplanar multisequence MR imaging of the left shoulder performed without contrast FINDINGS: The long head of the biceps tendon within the bicipital groove. The attachment of the long head the b iceps tendon to the superior labral anchor grossly appears intact. The attachment of the subscapulari s tendon grossly appears intact. Moderate increased T2 signal identified about the supraspinatus, inf raspinatus tendons likely tendinosis. There is small focus of increased T2 signal identified in the c onjoined portion of the supraspinatus, infraspinatus tendon likely a small focus of full-thickness te ar ,measuring 5 mm ,with extension of fluid into the subacromial subdeltoid bursa. The muscle bulk gr ossly appears unremarkable. Moderate degenerative changes acromioclavicular joint. Mild increased sig nal identified in the superior labrum could be mild degenerative changes. IMPRESSION: 1. Small focus of increased T2 signal identified in the conjoined portion of the supraspinatus, infr aspinatus tendon likely a small focus of full-thickness tear. Moderate rotator cuff tendinosis. 2. Moderate degenerative changes acromioclavicular and glenohumeral joint. 3. Mild increased signal identified in the superior labrum could be mild degenerative changes. Electronically signed by: Carlos Manuel Chandler MD (07/09/2020 2:55 PM) [id number]
== END ==
LOC: KCIC MRI 13:17
PROVIDERS: ATTEND Orthopaedic Surgery
DX: M19.012 Primary osteoarthritis, left shoulder (principal)
CPT/HCPCS: 73221

== ENCOUNTER → 2020-10-03 | Outpatient (CLI) | payer MEDICARE, BC ==
--- NOTE | 2020-10-03 14:01 | KCIC ---
MRI of the cervical spine without contrast 10/03/2020 CLINICAL HISTORY: Cervical radiculopathy. TECHNIQUE: Unenhanced T1-weighted, T2-weighted and inversion recovery sagittal and gradient echo and T2-weighted axial images of the cervical spine were obtained. FINDINGS: Comparison study is dated 09/28/2016. Minimal lateral curvature of the cervical spine is seen convex to the left. There is straightening of the normal cervical lordosis. Degenerative signal changes are seen involving all of the disks of the cervical spine. Degenerative signal changes are seen within the marrow surrounding these discs. Loss of height of the C5-6 and C6-7 discs is noted. No area of abnormal signal intensity is seen involvin g the cervical spinal cord. At the C2-3 disc space there is a minimal generalized disc bulge. Degenerative changes are seen invol ving the uncovertebral and facet joints bilaterally. These findings do not result in significant cent ral spinal canal or neural foraminal stenosis. At the C3-4 disc space there is a minimal generalized disc bulge. Degenerative changes are seen invol ving the uncovertebral and facet joints, right greater than left. These findings do not result in sig nificant central spinal canal stenosis. Very mild right neural foraminal stenosis is seen. The left n eural foramen is patent. At the C4-5 disc space there is a mild generalized disc bulge. Degenerative changes are seen involvin g the uncovertebral and facet joints, left greater than right. These findings do not result in signif icant central spinal canal stenosis. Very mild left neural foraminal stenosis is seen. The right neur al foramen is patent. At the C5-6 disc space there is a mild to moderate generalized disc bulge. Superimposed on this disc bulge is a central/left paracentral focal disc protrusion. This measures 3.5 mm in AP diameter. Degen erative changes are seen involving the uncovertebral and facet joints bilaterally. These findings eff tyrone the anterior and posterior CSF resulting in mild central spinal canal stenosis without significan t cord impingement. Mild to moderate bilateral neural foraminal stenosis is seen. At the C6-7 disc space there is a moderate generalized disc bulge. Degenerative changes are seen invo lving the uncovertebral and facet joints, left greater than right. These findings efface the anterior CSF resulting in mild central spinal canal stenosis without evidence of cord impingement. Mild to mo derate left neural foraminal stenosis is seen. The right neural foramen is patent. At the C7-T1 disc space there is a minimal generalized disc bulge. Degenerative changes are seen invo lving the facet joints bilaterally. These findings do not result in significant central spinal canal or neural foraminal stenosis. Since the previous examination there has been no significant interval change. IMPRESSION: Degenerative changes are seen throughout the cervical spine. These findings result in mil d central spinal canal stenosis at C5-6 and C6-7 without evidence of cord impingement. Mild right miquel ral foraminal stenosis is seen at C3-4. Very mild left neural foraminal stenosis is seen at C4-5. Mil d to moderate bilateral neural foraminal stenosis is seen at C5-6. Mild to moderate left neural sarabjit inal stenosis is seen at C6-7. Electronically signed by: Rk Gallegos MD (10/03/2020 1:58 PM) [id number]
== END ==
LOC: KCIC MRI 12:23
PROVIDERS: ATTEND Physician Assistant
DX: M47.22 Other spondylosis with radiculopathy, cervical region (principal); M48.02 Spinal stenosis, cervical region
CPT/HCPCS: 72141

== ENCOUNTER → 2020-11-05 | Outpatient (CLI) | payer MEDICARE, BC ==
[~2020-11-05] MED LIST changes: +ATOR20TA PO
--- NOTE | 2020-11-05 12:32 | PDOC1 ---
INITIAL PAIN CONSULT DATE OF SERVICE: DOS: DATE: 11/05/20 TIME: 12:25 CHIEF COMPLAINT: Chief Complaint: Neck and bilateral upper extremity pain HISTORY OF PRESENT ILLNESS: 65-year-old male presents history of pain in the base the neck and bilateral upper extremities right greater than left for about 6 months or so not the result of any specific injury but his son's dog tripped him while he was walking him and he fell with some pain increasing after that time patient reports the pain was there prior to this but not as bad now it is increased patient reports is constant and aching in the base the neck and upper extremity mostly in the right side anterior deltoid radiating the anterior bicep forearm into the hand and fingers on the right side with numbness and tingling patient reports a t hrobbing shooting pain in the neck and shoulders some on the left side as well but mostly on the right patient reports its tingling and numbness radiating sensation described as aching and cold in the arm and hand as well as a burning sensation in the base of the neck and upper back and shoulders. Patient reports no loss of motor function but significant increase in pain with repetitive motions lifting items reaching over his head with his right arm is been difficult sleeping because of the pain waking him up many times throughout the night over the past few months. Patient reports his disability rating 0-10 10 being the worsening from a 3 to a 10 with family home responsibilities 3-7 with social activity 3-10 with occupational activities 1 with sex behavior 1-2 with self-care and 3-10 with life support activities specially sleeping. Patient has had physical therapy within the last 2 months also chiropractic treatment and exercise was ongoing all of which have been helpful but not completely relieving the pain patient is taking tramadol as well as Robaxin neither of which has been helping with the pain. Patient reports some pain the low back and the bilateral lower extremities with previous history of lumbar laminectomy 2019 but is secondary to the neck and upper extremity pain. Patient have an MRI scan of the cervical spine show degenerative changes with mild central spinal canal stenosis at C5-6 and C6-7 with mild right neuroforaminal stenosis seen at C3-4 very mild left neuroforaminal stenosis C4-5 mild bilateral neuroforaminal stenosis at C5-6 and mild to moderate left neuroforaminal stenosis at C6-7. PAST MEDICAL HISTORY: PMH: Type 2 diabetes, hypertension, arthritis, asthma PREVIOUS SURGERIES: Past Surgical Hx: Lumbar laminectomy 2019, tonsillectomy in 1999, cholecystectomy 2015 CURRENT MEDICATIONS: Current Meds: Active Scripts Medications Dose Route/Sig Max Daily Dose Days Date Category Lipitor (Atorvastatin Calcium) 20 Mg Tablet 1 Tab PO DAILY 11/05/20 Reported Norvasc (Amlodipine Besylate) 10 Mg Tablet 10 Mg PO DAILY 02/27/19 Reported Benicar (Olmesartan Medoxomil) 20 Mg Tablet 20 Mg PO DAILY 02/27/19 Reported Aspirin Ec (Aspirin) 325 Mg Tablet.dr 325 Mg PO DAILYWBKFT 60 01/12/18 Rx Clopidogrel (Clopidogrel Bisulfate) 75 Mg Tablet 75 Mg PO DAILYWBKFT 60 01/12/18 Rx ALLERGIES; Allergies: Coded Allergies: No Known Medication Allergies (Verified Allergy, Unknown, 03/02/19) oxycodone (Verified Adverse Reaction, Mild, Nausea and Vomiting, 03/02/19) FAMILY HISTORY: Family Hx: Diabetes in patient's mother SOCIAL HISTORY: Social Hx: Patient does not gavino alcohol does not smoke not use any illegal illicit or recreational drugs is lives with his spouse, lives locally in [facility] 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 PHYSICAL EXAM: VS: Blood pressure is 137/85 pulse 91 respirations 18 temperature 98.2 F height 5 feet 5 inches weight is 198 pounds PE: PHYSICAL EXAMINATION: GENERAL: The patient is awake, alert, oriented, appropriate, very pleasant de meanor HEENT: Shows normocephalic, atraumatic. Extraocular movements are intact and symmetrical. Oral cavity: Mucous membranes moist and pink. Dentition is intact. NECK: Shows anterior throat supple without palpable lymphadenopathy noted. Swallow reflex symmetrical. CHEST: Shows normal on inspection. Breath sounds are clear bilaterally, distant but no rales rhonchi or wheezes auscultated. HEART: Shows S1, S2 clear. No murmurs auscultated. ABDOMEN: Soft, nontender, nondistended, obese. No palpable organomegaly is noted. No rebound or guarding demonstrated. BACK: Shows spine grossly in the midline. Normal-appearing cervical lordotic curvature. Cervical paraspinous muscles show symmetrical with inspection on palpation some moderate tenderness diffusely bilaterally diffusely without significant radiation. Patient shows good rotation motion cervical spine both laterally greater than 45 degrees closer to 90 degrees well is full extension full forward flexion without significant increase in pain or restriction. There is mildly increased thoracic kyphosis, some flattening of the lumbar lordotic curvature. Lumbar paraspinous muscles show symmetrical on inspection, on palpation shows some moderate tenderness diffusely throughout the upper, middle and lower distribution of the paraspinous muscles bilaterally and also into the lower thoracic paraspinous musculature, firm and tender, but without specific trigger points, without radiation of pain. The patient has good rotational motion of the lumbar spine, both laterally as well as extension and flexion without significant difficulty. No tenderness over the spinous processes, sacrum or sacroiliac regions. EXTREMITIES: Lower extremities show deep tendon reflexes 1+ in the patellar and tendo calcaneus tendons. Motor exam is 4 on a scale of 5 with right dorsiflexion, extension, quadriceps and hamstring flexion and 4/5 on the left. Peripheral pulses are 1 posterior tibial. No peripheral edema is noted bilaterally. Lower extremities are warm and dry to touch, equal in color and appearance. Upper extremities show deep tendon reflexes 2+ in the bicep tricep tendons, motor exam is strong with 5 out of 5 cardiac monitor strength bicep and tricep flexion and equal. Shoulder shrug strong and intact without loss of strength on resistance, as is abduction of the shoulder 90 degrees without loss of strength bilaterally. Peripheral pulses are 2+ radial, no peripheral edema is noted bilaterally. SKIN: Shows warm and dry, good turgor. No edema. No sores, rashes or bruising throughout. IMPRESSION: Impression: 65-year-old male with sickle history pain base the neck right greater than left upper extremity Low back and right greater than left lower extremity pain MRI scan cervical spine as noted Hypertension Arthritis Type 2 diabetes Plan: Options were discussed with the patient including conservative medical management physical therapies and vaginal techniques. Patient would like to pursue interventional techniques. We discussed a cervical epidural steroid injection using description as well as anatomical models to describe the procedure. We will first check with patient's prescribing physician regarding holding Plavix for 7 days. If deemed safe and appropriate to have him hold this and return for cervical epidurals or injection at that time. In the meantime, patient will continue with stretching strength exercises and oral analgesics as currently. TAMMI REAL MD November 05, 2020 12:32
== END | disposition home or self-care (01) ==
LOC: PNCL 10:15
PROVIDERS: ATTEND Anesthesiology
DX: M54.2 Cervicalgia (principal); M79.602 Pain in left arm; M79.601 Pain in right arm; E11.9 Type 2 diabetes mellitus without complications; I10 Essential (primary) hypertension; M19.90 Unspecified osteoarthritis, unspecified site; J45.909 Unspecified asthma, uncomplicated; E78.00 Pure hypercholesterolemia, unspecified; K21.9 Gastro-esophageal reflux disease without esophagitis; N40.0 Benign prostatic hyperplasia without lower urinary tract symptoms; E11.42 Type 2 diabetes mellitus with diabetic polyneuropathy; F41.9 Anxiety disorder, unspecified; Z90.49 Acquired absence of other specified parts of digestive tract; Z98.890 Other specified postprocedural states; Z79.899 Other long term (current) drug therapy; Z88.8 Allergy status to other drugs, medicaments and biological substances; Z79.82 Long term (current) use of aspirin
CPT/HCPCS: G0463

== ENCOUNTER → 2020-11-27 | Outpatient (CLI) | payer MEDICARE, BC ==
[~2020-11-27] MED LIST changes: +ASCO100T4 PO; +IOHEXOL 180 MG/ML 10 ML VIAL. ONE; +methylPREDNISolone ACETATE 40 MG/ML VIAL. ONE; +methylPREDNISolone ACETATE 80 MG/ML VIAL. ONE
--- NOTE | 2020-11-27 12:06 | PDOC ---
Progress Note - Pain Clinic Date of Service: DOS: DATE: 11/27/20 TIME: 12:03 Diagnosis: Dx: Cervical radiculopathy with cervical degenerative disease and cervical spinal stenosis Lumbar radiculopathy with lumbar degenerative disease lumbar postlaminectomy syndrome History or Present Illness: HPI: 65-year-old male returns for follow-up status post initial evaluation and preauthorization to hold his Plavix for 7 days he is cleared that now he has been off it for 7 days patient reports still significant pain base the neck and shoulders more on the left than the right but present bilaterally rating the base the neck shoulders upper extremities left posterior deltoid posterior triceps into the forearm of the anterior bicep and forearm on the right side into the hand with numbness and tingling in the fingers especially on the right patient reports is emergent 4-6 on average over the past week 5-6 at its worst and a 2-3 at its least is a 5 today patient reports no new motor or sensory deficits no new bowel or bladder cons or other complaints. Physical Exam: VS: Blood pressure is 118/82 pulse 81 respirations 20 temperature 97.9 F weight is 195 pounds PE: PHYSICAL EXAMINATION: GENERAL: The patient is awake, alert, oriented, appropriate, very pleasant demeanor HEENT: Shows normocephalic, atraumatic. Extraocular movements are intact and symmetrical. Oral cavity: Mucous membranes moist and pink. Dentition is intact. NECK: Shows anterior throat supple without palpable lymphadenopathy noted. Swallow reflex symmetrical. CHEST: Shows normal on inspection. Breath sounds are clear bilaterally, no rales rhonchi or wheezes auscultated. HEART: Shows S1, S2 clear. No murmurs auscultated. ABDOMEN: Soft, nontender, nondistended, obese. No palpable organomegaly is noted. No rebound or guarding demonstrated. BACK: Shows spine grossly in the midline. Normal-appearing cervical lordotic curvature. There is slightly increased thoracic kyphosis, some minor flattening of the lumbar lordotic curvature. Well-healed midline surgical scarring is noted. Lumbar paraspinous muscles show symmetrical on inspection, on palpation shows some moderate tenderness diffusely throughout the upper, middle and lower distribution of the paraspinous muscles, but without specific trigger points, without radiation of pain. The patient has good rotational motion of the lumbar spine, both laterally as well as extension and flexion without significant difficulty. No tenderness over the spinous processes, sacrum or sacroiliac regions. EXTREMITIES: Lower extremities show deep tendon reflexes 1+ in the patellar and tendo calcaneus tendons. Motor exam is 4 on a scale of 5 with right dorsiflexion, extension, quadriceps and hamstring flexion and 4/5 on the left. Peripheral pulses are 1 posterior tibial. No peripheral edema is noted bilaterally. Lower extremities are warm and dry to touch, equal in color and appearance. Upper extremity show deep tendon reflexes 2+ in the bicep triceps tendons, motor exam strong with 5 out of 5 chipper feeder strength bicep and tricep flexion and symmetrical. SKIN: Shows warm and dry, good turgor. No edema. No sores, rashes or bruising throughout. Procedure: Procedure: Options discussed with patient. Patient's old chart was reviewed his current medication regimen updated current review of systems updated today as well. We will proceed with a cervical epidural steroid injection with fluoroscopic guidance. Risks were discussed including but not limited to: Bleeding, infection, possibility of epidural hematoma and subsequent neurological compromise, dural puncture, headaches, spinal cord and/or nerve damage, side effects of steroid medication, and poor results regarding pain control. Patient understands and wished to proceed. Patient will return to the clinic in approximately 3 weeks for follow-up, was counseled as to return appointment act ivity level, and side effects to be aware. Patient will restart Plavix tomorrow November 28. Medication Injected: Med Injected: Procedure cervical epidural steroid injection at the C6-7 level, using local anesthetic under sterile prep and drape using C-arm fluoroscopic guidance under local anesthesia medications injected ;120 mg Depo-Medrol +5 mL normal saline and 2 mL contrast; condition at discharge is stable patient tolerated procedure well. and had no complications Condition at Discharge: Condition at Discharge: Condition at discharge is stable, patient already procedure well and had no complications. TAMMI REAL MD November 27, 2020 12:06
--- NOTE | 2020-11-27 12:07 | PDOC4 ---
PROCEDURE Procedure Patient was consented for cervical epidural steroid injection. Risks were d iscussed including but not limited to: Bleeding, infection, possibility of epidural hematoma and subsequent neurological compromise, dural puncture, headaches, spinal cord and/or nerve damage, side effects of steroid medication, and poor results regarding pain control. Patient understands and wished to proceed. Procedure cervical epidural steroid injection at the C6-7 level, using local anesthetic under sterile prep and drape using C-arm fluoroscopic guidance under local anesthesia medications injected ;120 mg Depo-Medrol +5 mL normal saline and 2 mL contrast; condition at discharge is stable patient tolerated procedure well. and had no complications TAMMI REAL MD November 27, 2020 12:07
== END | disposition home or self-care (01) ==
LOC: PNCL 10:12
PROVIDERS: ATTEND Anesthesiology
DX: M50.10 Cervical disc disorder with radiculopathy, unspecified cervical region (principal); M48.02 Spinal stenosis, cervical region; M51.16 Intervertebral disc disorders with radiculopathy, lumbar region; M96.1 Postlaminectomy syndrome, not elsewhere classified; I10 Essential (primary) hypertension; E78.00 Pure hypercholesterolemia, unspecified; K21.9 Gastro-esophageal reflux disease without esophagitis; M19.90 Unspecified osteoarthritis, unspecified site; E11.9 Type 2 diabetes mellitus without complications; N40.0 Benign prostatic hyperplasia without lower urinary tract symptoms; F41.9 Anxiety disorder, unspecified; J45.909 Unspecified asthma, uncomplicated; Z90.49 Acquired absence of other specified parts of digestive tract; Z98.890 Other specified postprocedural states; Z79.899 Other long term (current) drug therapy; Z79.82 Long term (current) use of aspirin; Z82.49 Family history of ischemic heart disease and other diseases of the circulatory system; Z88.8 Allergy status to other drugs, medicaments and biological substances
CPT/HCPCS: 62321; J1030; J1040; Q9965

== ENCOUNTER → 2020-12-18 | Outpatient (CLI) | payer MEDICARE, BC ==
[~2020-12-18] MED LIST changes: -IOHEXOL 180 MG/ML 10 ML VIAL. ONE; -methylPREDNISolone ACETATE 40 MG/ML VIAL. ONE; -methylPREDNISolone ACETATE 80 MG/ML VIAL. ONE
--- NOTE | 2020-12-18 14:01 | PDOC ---
Progress Note - Pain Clinic Date of Service: DOS: DATE: 12/18/20 TIME: 13:57 Diagnosis: Dx: Cervical radiculopathy with cervical degenerative disc disease and cervical spinal stenosis Lumbar radiculopathy with lumbar degenerative disease and lumbar postlaminectomy syndrome History or Present Illness: HPI: 65-year-old male returns for follow-up status post cervical epidural steroid action x1. Patient reports that 97% improvement and lasting to this day. Patient reports is significantly improved he is increase his activity to greater ease and comfort using his upper extremities with greater ease sleeping much better at night and getting rest. Patient reports a chief complaint now is his low back and right lower extremity pain which is burning and stinging tingling in the posterior gluteus low back into the lateral and posterior thigh on the right into the calf as well patient reports some on the left side but mostly on the right patient reports is a 10 on scale 10 is worse over the past week 2 on average in the neck and shoulders 10 in the back and 0-1 at its least in the neck and shoulders but for in the low back. Patient reports its aching and dull shooting tingling burning cramping and stabbing in the back on and off in intensity worse with walking standing better with sitting or laying down again does not awaken him from sleep at night. Patient reports no new motor or sensory deficits no new bowel or bladder Physical Exam: VS: Blood pressure is 122/77 pulse 79 respirations 18 temperature 97.6 3 Fahrenheit height 5 feet 5 inches weight 198 PE: PHYSICAL EXAMINATION: GENERAL: The patient is awake, alert, oriented, appropriate, very pleasant in demeanor, patient accompanied by his spouse HEENT: Shows normocephalic, atraumatic. Extraocular movements are intact and symmetrical. NECK: Shows anterior throat supple without palpable lymphadenopathy noted. Swallow reflex symmetrical. CHEST: Shows normal on inspection. Breath sounds are clear bilaterally. HEART: Shows S1, S2 clear. No murmurs auscultated. ABDOMEN: Soft, nontender, nondistended, obese. No palpable organomegaly is noted. No rebound or guarding demonstrated. BACK: Shows spine grossly in the midline. Normal-appearing cervical lordotic curvature. Cervical paraspinous muscles show symmetrical on inspection without asymmetry, patient demonstrates very mild tenderness in the inferior aspect the cervical paraspinous musculature but without radiation. Neck shows full rotation motion cervical spine both laterally as well as extension flexion without difficulty. There is slightly increased thoracic kyphosis, some minor flattening of the lumbar lordotic curvature. Lumbar paraspinous muscles show symmetrical on inspection, on palpation shows some moderate tenderness diffusely throughout the upper, middle and lower distribution of the paraspinous muscles without specific trigger points, without radiation of pain. The patient has good rotational motion of the lumbar spine, both laterally as well as extension and flexion without significant difficulty. EXTREMITIES: Lower extremities show deep tendon reflexes 1+ in the patellar and tendo calcaneus tendons. Motor exam is 4 on a scale of 5 with right dorsiflexion, extension, quadriceps and hamstring flexion and 4/5 on the left. Peripheral pulses are 1+ posterior tibial. No peripheral edema is noted bilaterally. Lower extremities are warm and dry to touch, equal in color and appearance. Upper extremity show deep tendon reflexes at 2+ in the bicep tricep tendons, motor exam strong with filling room operator strength rated 5 out of 5 as is bicep and triceps flexion. Shoulder shrug strong and intact without loss of strength on resistance. SKIN: Shows warm and dry, good turgor. No edema. No sores, rashes or bruising throughout. Procedure: Procedure: Options were discussed with the patient. Patient's old chart was reviewed his his current medication regimen updated current review of systems updated today as well. We will hold patient's Plavix for 7 days as he has been cleared to do so with his primary care physician, and have him return for lumbar epidural steroid injection at that time. Medication Injected: Med Injected: None Condition at Discharge: Condition at Discharge: Condition at discharge is stable. TAMMI REAL MD Dec 18, 2020 14:01
== END | disposition home or self-care (01) ==
LOC: PNCL 12:41
PROVIDERS: ATTEND Anesthesiology
DX: M50.10 Cervical disc disorder with radiculopathy, unspecified cervical region (principal); M48.02 Spinal stenosis, cervical region; M51.16 Intervertebral disc disorders with radiculopathy, lumbar region; M96.1 Postlaminectomy syndrome, not elsewhere classified; I10 Essential (primary) hypertension; E78.00 Pure hypercholesterolemia, unspecified; E11.42 Type 2 diabetes mellitus with diabetic polyneuropathy; M19.90 Unspecified osteoarthritis, unspecified site; J45.909 Unspecified asthma, uncomplicated; K21.9 Gastro-esophageal reflux disease without esophagitis; F41.9 Anxiety disorder, unspecified; Z79.82 Long term (current) use of aspirin; Z79.899 Other long term (current) drug therapy; Z98.890 Other specified postprocedural states; Z88.8 Allergy status to other drugs, medicaments and biological substances; Z82.49 Family history of ischemic heart disease and other diseases of the circulatory system; Z83.3 Family history of diabetes mellitus
CPT/HCPCS: 99212; G0463

== ENCOUNTER → 2020-12-27 | Outpatient (CLI) | payer MEDICARE, BC ==
[~2020-12-27] MED LIST changes: +IOHEXOL 180 MG/ML 10 ML VIAL. ONE; +methylPREDNISolone ACETATE 40 MG/ML VIAL. ONE; +methylPREDNISolone ACETATE 80 MG/ML VIAL. ONE
--- NOTE | 2020-12-27 08:22 | PDOC ---
Progress Note - Pain Clinic Date of Service: DOS: DATE: 12/27/20 TIME: 08:19 Diagnosis: Dx: Lumbar radiculopathy with lumbar degenerative disc disease and lumbar postlaminectomy syndrome Cervical radiculopathy with cervical degenerative disc disease and cervical spinal stenosis History or Present Illness: HPI: 65-year-old male returns follow-up status post cervical epidural steroid action x1. Patient reports approximately 85 to 90% improvement after the last injection but his main complaint now is low back and right lower extremity pain with pain in the low back right posterior gluteus posterior lateral thigh some on the left mostly on the right side worse with walking standing bending changing positions patient reports his neck is doing much better he is increase his activity with greater ease and comfort but his low back is still becoming much more noticeable with the pain. Patient rates is a 7-8 on scale 10 is worse over the past week for an average of 1 to 2 days least is a 4 today patient reports aching and dull sharp at times in the back shooting in the legs tingling burning cramping can be radiating across the back as well as in the legs neck and shoulders doing much better. Patient reports no new motor or sensory deficits no new bowel or bladder incontinence or other complaints. Physical Exam: VS: Blood pressure is 130/75 pulse 70 respirations 16 temperature 98.3 F height is 5 foot 5 inches weight is 197 pounds PE: PHYSICAL EXAMINATION: GENERAL: The patient is awake, alert, oriented, appropriate, very pleasant demeanor HEENT: Shows normocephalic, atraumatic. Extraocular movements are intact and symmetrical. Oral cavity: Mucous membranes moist and pink. NECK: Shows anterior throat supple without palpable lymphadenopathy noted. Swallow reflex symmetrical. CHEST: Shows normal on inspection. Breath sounds are clear bilaterally. HEART: Shows S1, S2 clear. No murmurs auscultated. ABDOMEN: Soft, nontender, nondistended, obese. BACK: Shows spine grossly in the midline. Normal-appearing cervical lordotic curvature. Cervical paraspinous muscles show symmetrical with inspection on palpation some mild tenderness in the inferior aspect cervical paraspinous muscular but without radiation without trigger points. Patient shows full rotation of motion of the cervical spine both laterally as well as extension flexion without significant difficulty. There is slightly increased thoracic kyphosis, some minor flattening of the lumbar lordotic curvature. Lumbar paraspinous muscles show symmetrical on inspection, on palpation shows some moderate tenderness diffusely throughout the upper, middle and lower distribution of the paraspinous muscles, but without specific trigger points, without radiation of pain. The patient has good rotational motion of the lumbar spine, both laterally as well as extension and flexion without significant difficulty. EXTREMITIES: Lower extremities show deep tendon reflexes 1+ in the patellar and tendo calcaneus tendons. Motor exam is 4 on a scale of 5 with right dorsiflexion, extension, quadriceps and hamstring flexion and 4/5 on the left. Peripheral pulses are 1+ posterior tibial. No peripheral edema is noted bilaterally. Lower extremities are warm and dry to touch, equal in color and appearance. Upper extremity show deep tendon reflexes 2+ in the bicep tricep tendons, motor exam strong with 5 out of 5 audio engineer strength bicep and tricep flexion peripheral pulses are 2+ radial. SKIN: Shows warm and dry, good turgor. No edema. No sores, rashes or bruising throughout. Procedure: Procedure: Options were discussed with the patient. Patient chart was reviewed his current medication regimen updated current review of systems updated today as well. We will proceed with lumbar epidural steroid injections today with fluoroscopic guidance. Patient has been off of his Plavix now for 7 days. Risks were discussed including but not limited to: Bleeding, infection, possibility of epidural hematoma and subsequent neurological compromise, dural puncture, headaches, spinal cord and/or nerve damage, side effects of steroid medication, and poor results regarding pain control. Patient understands and wished to proceed. Patient will return to clinic in approximately 3 weeks for follow-up, was counseled return appointment activity level and side effects to be aware of. Medication Injected: Med Injected: Procedure is lumbar epidural steroid injection under local anesthetic using sterile prep and drape at the L5-S1 level using C-arm fluoroscopic guidance in both AP and lateral views medications injected is 120 mg Depo-Medrol +10mL preservative-free normal saline and 2 mL contrast- condition at discharge is stable patient tolerated procedure well had no complications. Condition at Discharge: Condition at Discharge: Condition at discharge is stable, patient tolerated procedure well and had no complications TAMMI REAL MD Dec 27, 2020 08:22
--- NOTE | 2020-12-27 08:22 | PDOC4 ---
Procedure Note: Procedure Note: Patient was consented for lumbar epidural steroid injection. Procedure is lumbar epidural steroid injection under local anesthetic using sterile prep and drape at the L5-S1 level using C-arm fluoroscopic guidance in both AP and lateral views medications injected is 120 mg Depo-Medrol +10mL preservative-free normal saline and 2 mL contrast- condition at discharge is stable patient tolerated procedure well had no complications. TAMMI REAL MD Dec 27, 2020 08:22
== END | disposition home or self-care (01) ==
LOC: PNCL 07:31
PROVIDERS: ATTEND Anesthesiology
DX: M51.16 Intervertebral disc disorders with radiculopathy, lumbar region (principal); M96.1 Postlaminectomy syndrome, not elsewhere classified; M50.10 Cervical disc disorder with radiculopathy, unspecified cervical region; M48.02 Spinal stenosis, cervical region; I10 Essential (primary) hypertension; E78.00 Pure hypercholesterolemia, unspecified; J45.909 Unspecified asthma, uncomplicated; K21.9 Gastro-esophageal reflux disease without esophagitis; N40.0 Benign prostatic hyperplasia without lower urinary tract symptoms; M19.90 Unspecified osteoarthritis, unspecified site; F41.9 Anxiety disorder, unspecified; E11.42 Type 2 diabetes mellitus with diabetic polyneuropathy; Z90.49 Acquired absence of other specified parts of digestive tract; Z98.890 Other specified postprocedural states; Z79.82 Long term (current) use of aspirin; Z79.899 Other long term (current) drug therapy; Z82.49 Family history of ischemic heart disease and other diseases of the circulatory system; Z83.3 Family history of diabetes mellitus
CPT/HCPCS: 62323; J1030; J1040; Q9965

== ENCOUNTER → 2021-01-20 | Outpatient (CLI) | payer MEDICARE, BC ==
[~2021-01-20] MED LIST changes: -IOHEXOL 180 MG/ML 10 ML VIAL. ONE; -methylPREDNISolone ACETATE 40 MG/ML VIAL. ONE; -methylPREDNISolone ACETATE 80 MG/ML VIAL. ONE
--- NOTE | 2021-01-20 15:37 | PDOC ---
Progress Note - Pain Clinic Date of Service: DOS: DATE: 01/20/21 TIME: 15:33 Diagnosis: Dx: Cervical radiculopathy with cervical degenerative disease and cervical spinal stenosis Lumbar radiculopathy with lumbar degenerative disc disease and lumbar postlaminectomy syndrome History or Present Illness: HPI: 65-year-old male returns for follow-up status post lumbar epidural steroid injection x1 and cervical epidural injection x1 patient reports about 95% improvement in the low back and his neck yesterday became more noticeable with pain in the base the neck and the shoulder especially on the left side. Patient reports is beginning it, noticeable with daily activities lifting things reaching over his head with his left arm repetitive motions and weightbearing. Patient reports his back is doing much better still some cramping in the low back but still rating to the lower extremities posterior gluteus posterior thighs but much improved patient reports the pain is his chief complaint is in the neck and shoulders aching sharp dull tingling burning cramping can be constant with activity patient reports is a 2-4 on scale 10 is worse over the past week 3-4 on average 1-2 at its least and is a 3 today. Patient reports no new motor or sensory deficits been sleeping much better doing work activities household activities with much greater ease and comfort low back again pain in the neck and the left upper extremity beginning to return in a radicular fashion. Physical Exam: VS: Blood pressure is 117/67 pulse 79 respirations 16 temperature 98.4 F height is 5 feet 5 inches weight 199 pounds PE: PHYSICAL EXAMINATION: GENERAL: The patient is awake, alert, oriented, appropriate, very pleasant in demeanor. HEENT: Shows normocephalic, atraumatic. Extraocular movements are intact and symmetrical. Oral cavity: Mucous membranes moist and pink. NECK: Shows anterior throat supple without palpable lymphadenopathy noted. Swallow reflex symmetrical. CHEST: Shows normal on inspection. Breath sounds are clear bilaterally. HEART: Shows S1, S2 clear. No murmurs auscultated. ABDOMEN: Soft, nontender, nondistended. No palpable organomegaly is noted. No rebound or guarding demonstrated. BACK: Shows spine grossly in the midline. Normal-appearing cervical lordotic curvature. Cervical paraspinous muscles show symmetrical with inspection, on palpation some moderate tenderness diffusely in the middle and lower distribution the paraspinous muscles but without specific trigger points or atrophy or hypertrophy. Patient shows full rotation motion cervical spine both laterally as well as extension flexion without significant pain reported. There is slightly increased thoracic kyphosis, some minor flattening of the lumbar lordotic curvature. Lumbar paraspinous muscles show symmetrical on inspection, on palpation shows some moderate tenderness diffusely throughout the upper, middle and lower distribution of the paraspinous muscles, but without specific trigger points, without radiation of pain. The patient has good rotational motion of the lumbar spine, both laterally as well as extension and flexion without significant difficulty. No tenderness over the spinous processes, sacrum or sacroiliac regions. EXTREMITIES: Lower extremities show deep tendon reflexes 1 in the patellar and tendo calcaneus tendons. Motor exam is 4 on a scale of 5 with right dorsiflexion, extension, quadriceps and hamstring flexion and 4/5 on the left. Peripheral pulses are 1+ posterior tibial. No peripheral edema is noted bilaterally. Lower extremities are warm and dry to touch, equal in color and appearance. Upper extremity show deep tendon reflexes 2+ in the bicep tricep tendons motor exam is 5 out of 5 server assistant strength bicep and tricep flexion. Peripheral pulses are 2+ radial no peripheral edema is noted. Shoulder shrug is strong and intact without loss of strength on resistance as is abduction of the shoulder 90 degrees. SKIN: Shows warm and dry, good turgor. No edema. No sores, rashes or bruising throughout. Procedure: Procedure: Options were discussed with the patient. Patient's old chart reviewed his current medication regimen updated current review of systems updated today as well. We will try Medrol Dosepak in the meantime as patient is currently still on Plavix. Patient given instructions well side effects aware with the Medrol Dosepak. Patient will see how this does and if still significant pain and radicular qualities in the left upper extremity, will have him hold Plavix as he has had clearance to do so before, and return for cervical epidural steroid injection. Medication Injected: Med Injected: None Condition at Discharge: Condition at Discharge: Condition at discharge is stable. TAMMI REAL MD Jan 20, 2021 15:37
== END | disposition home or self-care (01) ==
LOC: PNCL 14:15
PROVIDERS: ATTEND Anesthesiology
DX: M50.10 Cervical disc disorder with radiculopathy, unspecified cervical region (principal); M51.16 Intervertebral disc disorders with radiculopathy, lumbar region; M96.1 Postlaminectomy syndrome, not elsewhere classified; I10 Essential (primary) hypertension; E78.00 Pure hypercholesterolemia, unspecified; E11.9 Type 2 diabetes mellitus without complications; J45.909 Unspecified asthma, uncomplicated; M19.90 Unspecified osteoarthritis, unspecified site; F41.9 Anxiety disorder, unspecified; Z90.49 Acquired absence of other specified parts of digestive tract; Z98.890 Other specified postprocedural states; Z79.899 Other long term (current) drug therapy
CPT/HCPCS: 99212; G0463

== ENCOUNTER → 2021-04-30 | Outpatient (CLI) | payer MEDICARE, BC ==
[~2021-04-30] MED LIST changes: +IOHEXOL 180 MG/ML 10 ML VIAL. ONE; +methylPREDNISolone ACETATE 40 MG/ML VIAL. ONE; +methylPREDNISolone ACETATE 80 MG/ML VIAL. ONE
--- NOTE | 2021-04-30 10:32 | PDOC4 ---
Procedure Note: ICD 10 Code: ICD 10 Code: M54.12 M4 8.02 M50.30 Procedure Note: Patient was consented for cervical epidural steroid injection with fluoroscopic guidance. Risks were discussed including but not limited to: Bleeding, infection, possibility of epidural hematoma and subsequent neurological compromise, dural puncture, headaches, spinal cord and/or nerve damage, side effects of steroid medication, and poor results regarding pain control. Patient understands and wished to proceed. Procedure cervical epidural steroid injection at the C6-7 level, using local anesthetic under sterile prep and drape using C-arm fluoroscopic guidance under local anesthesia medications injected ;120 mg Depo-Medrol +5 mL normal saline and 2 mL contrast; condition at discharge is stable patient tolerated procedure well. and had no complications TAMMI REAL MD Apr 30, 2021 10:32
--- NOTE | 2021-04-30 10:32 | PDOC ---
Progress Note - Pain Clinic Date of Service: DOS: DATE: 04/30/21 TIME: 10:28 Diagnosis: Dx: Cervical radiculopathy with cervical degenerative disease and cervical spinal stenosis Lumbar radiculopathy with lumbar degenerative disease and lumbar History or Present Illness: HPI: 65-year-old male returns for follow-up status post lumbar epidural steroid injection with complaints of pain in the base of the neck and shoulders had cervical injection in November of this year did very well about 97% improvement and reports still about 90% improvement in his low back but his neck and shoulders are looking much more noticeable pressure on the right side patient reports pain the base the neck and shoulders bilaterally in the right upper extremity posterior deltoid triceps into the forearm both anteriorly posterior as well as the biceps on the right into the hand and fingers with numbness and tingling patient reports cramping stabbing in the base the neck and shoulders radiating the right upper extremity worse with walking standing but if motions reaching forward weightbearing reaching over his head with his right arm and has been disturbing sleep about every 3-4 hours patient scribes as tight and shooting in the arm cramping stabbing burning tingling radiating constant at times patient reports is a 9-10 on scale 10 is worst 6-10 on average in 4-5 its least is a 6 today. Patient reports no loss of motor function, but significant fatigability and significant pain in the base the neck shoulder and right upper extremity. Physical Exam: VS: Blood pressure is 117/76 pulse 75 respirations 18 temperature 98.2 F height 5 feet 5 inches weight 200 pounds. PE: PHYSICAL EXAMINATION: GENERAL: The patient is awake, alert, oriented, appropriate, very pleasant in demeanor HEENT: Shows normocephalic, atraumatic. Extraocular movements are intact and symmetrical. Oral cavity: Mucous membranes moist and pink. Dentition is intact. NECK: Shows anterior throat supple without palpable lymphadenopathy noted. Swallow reflex symmetrical. CHEST: Shows normal on inspection. Breath sounds are clear bilaterally, distant no rales or rhonchi. HEART: Shows S1, S2 clear. No murmurs auscultated. ABDOMEN: Soft, nontender, nondistended, obese. No palpable organomegaly is noted. BACK: Shows spine grossly in the midline. Normal-appearing cervical lordotic curvature. Cervical paraspinous muscles show symmetrical inspection, palpation some moderate tenderness diffusely in the middle and inferior aspect cervical paraspinous muscles are slightly more on the right than the left and present bilaterally as well as into the superior medial trapezius. Patient shows good rotation motion cervical spine both laterally greater than 45 degrees as well as extension and forward flexion without significant difficulty. There is slightly increased thoracic kyphosis, some minor flattening of the lumbar lordotic cu rvature. Lumbar paraspinous muscles show symmetrical on inspection, on palpation shows some moderate tenderness diffusely throughout the upper, middle and lower distribution of the paraspinous muscles, but without specific trigger points, without radiation of pain. The patient has good rotational motion of the lumbar spine, both laterally as well as extension and flexion without significant difficulty. No tenderness over the spinous processes, sacrum or sacroiliac regions. EXTREMITIES: Lower extremities show deep tendon reflexes 1+ in the patellar and tendo calcaneus tendons. Motor exam is 4 on a scale of 5 with right dorsiflexi on, extension, quadriceps and hamstring flexion and 4/5 on the left. Peripheral pulses are 1+ posterior tibial. No peripheral edema is noted bilaterally. Lower extremities are warm and dry. Upper extremity show deep tendon reflexes 2+ in the bicep and triceps tendons, motor exam strong with estimator strength rated 5 out of 5 as is bicep and tricep flexion and equal. Peripheral pulses are 2+ radial. Shoulder shrug strong and intact without loss strength on resistance bilaterally. SKIN: Shows warm and dry, good turgor. No edema. No sores, rashes or bruising throughout. Procedure: Procedure: Options were discussed with the patient. Patient chart reviews his current medication regimen updated current review of systems updated today as well. We will proceed with a cervical epidural steroid injection today with fluoroscopic guidance. Risks were discussed including but not limited to: Bleeding, infection, possibility of epidural hematoma and subsequent neurological compromise, dural puncture, headaches, spinal cord and/or nerve damage, side effects of steroid medication, and poor results regarding pain control. Patient understands and wished to proceed. Patient will return to clinic in approximately 4 weeks for follow-up, was counseled as return appointment, activity level, and side effect to be aware of. Medication Injected: Med Injected: Procedure cervical epidural steroid injection at the C6-7 level, using local anesthetic under sterile prep and drape using C-arm fluoroscopic guidance under local anesthesia medications injected ;120 mg Depo-Medrol +5 mL normal saline and 2 mL contrast; condition at discharge is stable patient tolerated procedure well. and had no complications Condition at Discharge: Condition at Discharge: Condition at discharge stable, patient tolerated the procedure well and had no complications. TAMMI REAL MD Apr 30, 2021 10:32
== END | disposition home or self-care (01) ==
LOC: PNCL 09:10
PROVIDERS: ATTEND Anesthesiology
DX: M50.10 Cervical disc disorder with radiculopathy, unspecified cervical region (principal); M48.02 Spinal stenosis, cervical region; M51.16 Intervertebral disc disorders with radiculopathy, lumbar region; I10 Essential (primary) hypertension; E78.00 Pure hypercholesterolemia, unspecified; E11.9 Type 2 diabetes mellitus without complications; J45.909 Unspecified asthma, uncomplicated; K21.9 Gastro-esophageal reflux disease without esophagitis; N40.0 Benign prostatic hyperplasia without lower urinary tract symptoms; F41.9 Anxiety disorder, unspecified; Z79.82 Long term (current) use of aspirin; Z79.899 Other long term (current) drug therapy; Z98.890 Other specified postprocedural states; Z88.8 Allergy status to other drugs, medicaments and biological substances
CPT/HCPCS: 62321; J1030; J1040; Q9965

== ENCOUNTER → 2021-05-01 | Outpatient (CLI) | payer MEDICARE, BC ==
[~2021-05-01] MED LIST changes: -IOHEXOL 180 MG/ML 10 ML VIAL. ONE; -methylPREDNISolone ACETATE 40 MG/ML VIAL. ONE; -methylPREDNISolone ACETATE 80 MG/ML VIAL. ONE
--- NOTE | 2021-05-01 15:00 | KCIC ---
EXAM: Brain MRI with and without contrast. HISTORY: Left sided tinnitus. Bilateral sensorineural hearing loss. TECHNIQUE: Multiplanar, multisequence magnetic resonance imaging of the brain was performed prior to and following the administration of intravenous contrast. COMPARISON: Head CT dated 01/12/2018. Brain MRI dated 01/10/2018. FINDINGS: There is no restricted diffusion to suggest acute or subacute infarction. There is encephal omalacia within the medial right occipital lobe due to chronic infarction. There is gyriform suscepti bility effect in this location due to laminar necrosis. There is a tiny chronic infarct within the po sterior left occipital lobe. There are foci of encephalomalacia within the cerebellar hemispheres, li roel due to chronic infarction. There is a chronic lacunar infarct within the right thalamus. There a re chronic lacunar infarcts within the left caudate nucleus and putamen. There is cerebral volume loss. There is no mass effect or midline shift. There is no hydrocephalus. T he orbits are unremarkable. The paranasal sinuses and mastoid air cells are unremarkable. There are n ormal flow voids within the cerebral vessels. There is no suspicious calvarial lesion. The anterior i nferior cerebellar arteries course along the bilateral porus acusticus, a normal variant. This is not within limits to suggest a vascular loop. No cerebellopontine angle lesion is seen. The vestibular c ochlear nerves, facial nerves, membranous labyrinths and trigeminal nerve complexes are unremarkable. IMPRESSION: 1. No acute intracranial finding. 2. Unremarkable noncontrast internal auditory canals. 3. 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 4. Tiny chronic infarcts involving the right thalamus, left basal ganglia, posterior left occipital l obe and bilateral cerebellar hemispheres. 5. Cerebral volume loss. Electronically signed by: Micheline Waddell MD (05/01/2021 2:57 PM) [id number]
== END ==
LOC: KCIC MRI 13:06
PROVIDERS: ATTEND Otolaryngology
DX: I63.9 Cerebral infarction, unspecified (principal); G93.89 Other specified disorders of brain; H93.12 Tinnitus, left ear; H90.3 Sensorineural hearing loss, bilateral
CPT/HCPCS: 70551

== ENCOUNTER → 2021-07-23 | Outpatient (CLI) | payer MEDICARE, BC ==
[~2021-07-23] MED LIST changes: +TAMS0.4C97 PO
--- NOTE | 2021-07-23 09:58 | PDOC ---
Progress Note - Pain Clinic Date of Service: DOS: DATE: 07/23/21 TIME: 09:54 Diagnosis: Dx: Cervical radiculopathy with cervical degenerative disease and cervical spinal stenosis Lumbar radiculopathy with lumbar degenerative disease postlaminectomy syndrome History or Present Illness: HPI: 65-year-old male returns for follow-up status post cervical epidural steroid injection last seen April 30, 2021 patient did very well that 90% improvement for several weeks following the injection patient reports about 2 months later t he pain began to return he still significantly improved but has new finding of now left upper extremity pain as well as right patient reports also some pain in the low back which comes and goes more on the right side with radiating pain in the right leg patient reports his main complaint however is neck and upper extremity pain now bilaterally more on the left side than the right. Patient reports no loss of function no motor loss but significant fatigability with repetitive motions and reaching as well as lifting and bending. 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 Patient rates pain as a 5 on a scale of 10 it is worst 3-5 on average 2-3 at its least is a 4 today. Patient reports no overt motor loss but significant fatigability with repetitive motions and weight lifting with the upper extremities. Physical Exam: VS: Blood pressure is 126/78 pulse 84 respirations 16 temperature 97.7 F height is 5 feet 5 inches weight is 199 pounds PE: PHYSICAL EXAMINATION: GENERAL: The patient is awake, alert, oriented, appropriate, very pleasant in demeanor HEENT: Shows normocephalic, atraumatic. Extraocular movements are intact and symmetrical. Oral cavity: Mucous membranes moist and pink. Dentition is intact. NECK: Shows anterior throat supple without palpable lymphadenopathy noted. Swallow reflex symmetrical. CHEST: Shows normal on inspection. Breath sounds are clear bilaterally, no rales rhonchi wheezes auscultated. HEART: Shows S1, S2 clear. No murmurs auscultated. ABDOMEN: Soft, nontender, nondistended. No palpable organomegaly is noted. BACK: Shows spine grossly in the midline. Normal-appearing cervical lordotic curvature. Cervical paraspinous muscles show symmetrical inspection, on palpation is moderate tenderness diffusely bilaterally in the inferior aspect the cervical paraspinous muscles right and left but without specific trigger points atrophy or hypertrophy. Patient shows good rotation motion cervical spine with some moderate tenderness with left and right far lateral rotation but not with extension or flexion which is performed fully. There is mildly increased thoracic kyphosis, some flattening of the lumbar lordotic curvature with well-healed surgical scarring. Lumbar paraspinous muscles show symmetrical on inspection, on palpation shows some moderate tenderness diffusely throughout the upper, middle and lower distribution of the paraspinous muscles, but without specific trigger points, without radiation of pain. The patient has good rotational motion of the lumbar spine, both laterally as well as extension and flexion without significant difficulty. No tenderness over the spinous processes, sacrum or sacroiliac regions. EXTREMITIES: Lower extremities show deep tendon reflexes 1 in the patellar and tendo calcaneus tendons. Motor exam is 4 on a scale of 5 with right dorsi flexion, extension, quadriceps and hamstring flexion and 4/5 on the left. Peripheral pulses are 1+ posterior tibial. No peripheral edema is noted bilaterally. Lower extremities are warm and dry to touch, equal in color and appearance. 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 Shoulder shrug is strong and intact without loss of strength on resistance bilaterally. SKIN: Shows warm and dry, good turgor. No edema. No sores, rashes or bruising throughout. Procedure: Procedure: Options were discussed with patient. Patient's old chart reviews his current medication regimen updated current review of systems updated today as well. We will proceed with a cervical epidural steroid injection stable fluoroscopic guidance. Risks were discussed including but not limited to: Bleeding, in fection, possibility of epidural hematoma and subsequent neurological compromise, dural puncture, headaches, spinal cord and/or nerve damage, side effects of steroid medication, and poor results regarding pain control. Patient understands and wished to proceed. Patient will return to the clinic in approximately 2 weeks for follow-up, was counseled as to return appointment, activity level, and side effect to be aware of. Medication Injected: Med Injected: Procedure cervical epidural steroid injection at the C6-7 level, using local anesthetic under sterile prep and drape using C-arm fluoroscopic guidance under local anesthesia medications injected ;120 mg Depo-Medrol +5 mL normal saline and 2 mL contrast; condition at discharge is stable patient tolerated procedure well. and had no complications Condition at Discharge: Condition at Discharge: Condition at discharge stable, paced tolerated procedure well and had no complications. TAMMI REAL MD Jul 23, 2021 09:58
--- NOTE | 2021-07-23 09:59 | PDOC4 ---
Procedure Note: ICD 10 Code: ICD 10 Code: M54.12 M50.30 M48.02 Procedure Note: Patient was consented for cervical epidural steroid injection with fluoroscopic guidance. Risks were discussed including but not limited to: Bleeding, infection, possibility of epidural hematoma and subsequent neurological compromise, dural puncture, headaches, spinal cord and/or nerve damage, side effects of steroid medication, and poor results regarding pain control. Patient understands and wished to proceed. Procedure cervical epidural steroid injection at the C6-7 level, using local a nesthetic under sterile prep and drape using C-arm fluoroscopic guidance under local anesthesia medications injected ;120 mg Depo-Medrol +5 mL normal saline and 2 mL contrast; condition at discharge is stable patient tolerated procedure well. and had no complications TAMMI REAL MD Jul 23, 2021 09:59
== END | disposition home or self-care (01) ==
LOC: PNCL 09:01
PROVIDERS: ATTEND Anesthesiology
DX: M51.16 Intervertebral disc disorders with radiculopathy, lumbar region (principal); M50.10 Cervical disc disorder with radiculopathy, unspecified cervical region; M48.02 Spinal stenosis, cervical region; M96.1 Postlaminectomy syndrome, not elsewhere classified; I10 Essential (primary) hypertension; E78.00 Pure hypercholesterolemia, unspecified; J45.909 Unspecified asthma, uncomplicated; K21.9 Gastro-esophageal reflux disease without esophagitis; M19.90 Unspecified osteoarthritis, unspecified site; E11.9 Type 2 diabetes mellitus without complications; N40.0 Benign prostatic hyperplasia without lower urinary tract symptoms; F41.9 Anxiety disorder, unspecified; Z79.82 Long term (current) use of aspirin; Z79.899 Other long term (current) drug therapy; Z98.890 Other specified postprocedural states; Z88.8 Allergy status to other drugs, medicaments and biological substances; Z82.49 Family history of ischemic heart disease and other diseases of the circulatory system; Z83.3 Family history of diabetes mellitus
CPT/HCPCS: 62323

== ENCOUNTER → 2021-11-20 | Outpatient (CLI) | payer MEDICARE, BC ==
[~2021-11-20] MED LIST changes: +DEXAMETHASONE PRES.FREE 10 MG/ML VIAL. ONE; +IOHEXOL 180 MG/ML 10 ML VIAL. ONE; +MECL-75 PO
--- NOTE | 2021-11-20 10:38 | PDOC ---
Progress Note - Pain Clinic Date of Service: DOS: DATE: 11/20/21 TIME: 10:32 Diagnosis: Dx: Cervical radiculopathy with cervical degenerative disease and cervical spinal stenosis Lumbar radiculopathy with lumbar degenerative disease lumbar postlaminectomy syndrome History or Present Illness: HPI: 66-year-old male returns last seen July 23, 2021 patient did very well and has had previous lumbar epidural steroid injection as well as cervical epidural steroid injection with very good results patient reports about 90% improvement with each in the past. Patient reports that he is doing very well and the pain began to return and is now on both of the upper extremities where position it was only on the right side patient reports pain across the low back as well into the right lower extremity posterior gluteus posterior thigh posterior calf patient reports today low back and leg pain is secondary to the neck and shoulder and upper extremity pain which is a 10 on scale 10 is worst 4-5 on average 4 to [place] is a 5 today patient reported sharp pain in the neck and back also dull shooting pain in the arms and right leg tingling burning cramping the leg in the arms which is radiating and can be constant with activity worse with repetitive motions reaching over his head with his arms wakes him from sleep about once a night in the low back and right lower extremity pain is worse with walking and standing changing position especially standing 1 position without movement. Patient reports no loss of motor function no bowel or bladder incontinence but significant fatigability of both extremities also right lower extremity. Physical Exam: VS: Blood pressure is 105/73 pulse 63 respirations 18 temperature 97.8 F height 5 feet 5 inches weight is 198 pounds. PE: PHYSICAL EXAMINATION: GENERAL: The patient is awake, alert, oriented, appropriate, very pleasant in d emeanor HEENT: Shows normocephalic, atraumatic. Extraocular movements are intact and symmetrical. Patient wearing eyeglasses. Oral cavity: Mucous membranes moist and pink. Dentition is intact. NECK: Shows anterior throat supple without palpable lymphadenopathy noted. Swallow reflex symmetrical. CHEST: Shows normal on inspection. Breath sounds are clear bilaterally, no rales or rhonchi auscultated. HEART: Shows S1, S2 clear. No murmurs auscultated. ABDOMEN: Soft, nontender, nondistended. No palpable organomegaly is noted. BACK: Shows spine grossly in the midline. Normal-appearing cervical lordotic curvature. Cervical paraspinous muscles show symmetrical with inspection, palpation some moderate diffusely bilaterally without significant radiation. Pa tient shows good rotation of motion of the cervical spine with lateral as well as full extension full forward flexion with some moderate tenderness with extension only but without radiation. Posterior cervical musculature which shows no trigger points no asymmetry. There is slightly increased thoracic kyphosis, some minor flattening of the lumbar lordotic curvature. Lumbar jennifer pinous muscles show symmetrical on inspection, on palpation shows some moderate tenderness diffusely throughout the upper, middle and lower distribution of the paraspinous musculature, without specific trigger points, without radiation of pain. The patient has good rotational motion of the lumbar spine, both laterally as well as extension and flexion without significant difficulty. No tenderness over the spinous processes, sacrum or sacroiliac regions. EXTREMITIES: Lower extremities show deep tendon reflexes 2+ in the patellar and tendo calcaneus tendons. Motor exam is 4 on a scale of 5 with right dorsiflexion, extension, quadriceps and hamstring flexion and 5/5 on the left. Peripheral pulses are 1 posterior tibial. No peripheral edema is noted bilatera lly. Lower extremities are warm and dry to touch, equal in color and appearance. 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 Peripheral pulses are 2+ radial. SKIN: Shows warm and dry, good turgor. No edema. No sores, rashes or bruising throughout. Procedure: Procedure: Options were discussed with patient. Patient's old chart was reviewed as she is current medication regimen updated current review of systems updated today as well. We will proceed with a cervical epidural steroid injection today with fluoroscopic guidance. Risks were discussed including but not limited to: Bleeding, infection, possibility of epidural hematoma and subsequent neurological compromise, dural puncture, headaches, spinal cord and/or nerve da mage, side effects of steroid medication, and poor results regarding pain control. Patient understands and wished to proceed. Patient return to clinic in approximately 2 weeks for follow-up, was counseled as to return appointment, activity level, and side effects to be aware of. Medication Injected: Med Injected: Procedure cervical epidural steroid injection at the C6-7 level, using local anesthetic under sterile prep and drape using C-arm fluoroscopic guidance under local anesthesia medications injected ; 20 mg dexamethasone +5 mL normal saline and 2 mL contrast; condition at discharge is stable patient tolerated procedure well. and had no complications Condition at Discharge: Condition at Discharge: Condition at discharge stable, patient tolerated the procedure well and had no complications. TAMMI REAL MD November 20, 2021 10:38
--- NOTE | 2021-11-20 10:39 | PDOC4 ---
Procedure Note: ICD 10 Code: ICD 10 Code: M54.12 M50.30 M48.02 Procedure Note: Patient was consented for cervical epidural steroid injection with fluoroscopic guidance. Risks were discussed including but not limited to: Bleeding, infection, possibility of epidural hematoma and subsequent neurological compromise, dural puncture, headaches, spinal cord and/or nerve damage, side effects of steroid medication, and poor results regarding pain control. Patient understands and wished to proceed. Procedure cervical epidural steroid injection at the C6-7 level, using local a nesthetic under sterile prep and drape using C-arm fluoroscopic guidance under local anesthesia medications injected ; 20 mg dexamethasone +5 mL normal saline and 2 mL contrast; condition at discharge is stable patient tolerated procedure well. and had no complications TAMMI REAL MD November 20, 2021 10:39
== END | disposition home or self-care (01) ==
LOC: PNCL 09:32
PROVIDERS: ATTEND Anesthesiology
DX: M50.10 Cervical disc disorder with radiculopathy, unspecified cervical region (principal); M54.12 Radiculopathy, cervical region; M51.16 Intervertebral disc disorders with radiculopathy, lumbar region; M96.1 Postlaminectomy syndrome, not elsewhere classified; M48.02 Spinal stenosis, cervical region; I10 Essential (primary) hypertension; E78.00 Pure hypercholesterolemia, unspecified; J45.909 Unspecified asthma, uncomplicated; K21.9 Gastro-esophageal reflux disease without esophagitis; M19.90 Unspecified osteoarthritis, unspecified site; E11.9 Type 2 diabetes mellitus without complications; F41.9 Anxiety disorder, unspecified; N40.0 Benign prostatic hyperplasia without lower urinary tract symptoms; Z90.49 Acquired absence of other specified parts of digestive tract; Z98.890 Other specified postprocedural states; Z79.899 Other long term (current) drug therapy; Z79.82 Long term (current) use of aspirin; Z88.8 Allergy status to other drugs, medicaments and biological substances
CPT/HCPCS: 62321; J1100; Q9965